=== PATIENT | male | born 1935 | race Caucasian/White ===

== ENCOUNTER 2018-10-26 09:08 | Emergency (ER) | payer OTHER, SELFPAY ==
[2018-10-26 09:22] VITALS: BP 149/67; PULSE 50; RESP 18; TEMP 36.3; O2SAT 100
--- NOTE | 2018-10-26 09:30 | ED.UPPEXIN ---
HPI - Extremity Injury (Upper) General Chief Complaint: Extremity Injury, Upper Stated Complaint: Left thumb/head injury from skiing Time Seen by Provider: 10/26/18 09:12 Source: patient Mode of arrival: ambulatory Limitations: no limitations History of Present Illness HPI narrative: Patient is an 83-year-old left-hand dominant male here for evaluation of a left hand/thumb injury. He states that yesterday he was skiing and [place]. He states that he was hit by another skier and fell forward. Did hurt his hand and did hit his head. He states that his head has already been evaluated he is here today because he has had worsening pain and swelling in his left thumb. Has iced it prior to arrival otherwise no interventions. Related Data Allergies Allergy/AdvReac Type Severity Reaction Status Date / Time No Known Drug Allergies Allergy Verified 10/26/18 09:28 Review of Systems Eyes Denies blurry vision and Denies diplopia Cardiovascular Denies chest pain and Denies dyspnea Respiratory Denies dyspnea Gastrointestinal Gastrointestinal: Denies abdominal pain Musculoskeletal Comments: Left hand/thumb pain Integumentary/Breasts Comments: Bruising around the left thumb Neurologic Comments: No neurologic changes left hand PFSH Surgical History No pertinent past surgical history (Acute) Social History Smoking Status: Never smoker Exam Initial Vital Signs Initial Vital Signs: Vital Signs Temperature 97.4 F L 10/26/18 09:22 Pulse Rate 50 L 10/26/18 09:22 Respiratory Rate 18 10/26/18 09:22 Blood Pressure 149/67 H 10/26/18 09:22 Pulse Oximetry 100 10/26/18 09:22 Const General: cooperative, healthy appearing, comfortable, well developed, well groomed and No acute distress Orientation: alert, awake and oriented x3 HENMT Head: normal to inspection and normocephalic Resp Effort & Inspection: normal respiratory effort Cardio Rate: regular rate Pulses: radial pulses present on the left Skin Other: Bruising circumferentially along the base of the left thumb. Neuro Other: Sensation intact to light touch left upper extremity Extrem Other: Left shoulder left elbow left forearm left wrist unremarkable. Tenderness to palpation along the MCP joint of the left thumb. Psych Appearance: grossly normal and well kempt Course Orders Ordered: ED Orders 10/26/18 09:30 XR hand LT min 3V Stat Vital Signs - 8 hr 10/26/18 09:22 Temperature 97.4 F L Pulse Rate 50 L Respiratory Rate 18 Blood Pressure 149/67 H Pulse Oximetry 100 MDM - Extremity Injury (Upper) Imaging Data Hand x-ray: Radiologist's impression: ROCEDURE: XR HAND LT MIN 3V INDICATIONS: left thumb pain after fall TECHNIQUE: 3 views of the hand(s) acquired. COMPARISON: None. FINDINGS: Bones: No fractures or dislocations. Carpal bones are normally aligned. No suspicious bony lesions. There is severe osteoarthritis at the first carpometacarpal joint, first metacarpophalangeal joint, and multiple interphalangeal joints. Soft tissues: No suspicious soft tissue calcifications. IMPRESSION: 1. No fractures. 2. Severe osteoarthritis. Dictated by: Avel Lopez M.D. on 10/26/2018 at 10:04 Approved by: Avel Lopez M.D. on 10/26/2018 at 10:0 [facility] Narrative Medical decision making narrative: Patient has no tenderness over the snuffbox. X-ray was negative for acute pathology. He does have swelling around the base of the thumb. No other injuries found on exam. A place him in a removable thumb spica splint. We did discuss icing. Informed him that if his symptoms do not improve over the next 7-10 days for worsen that he needs to talk with his primary doctor about a referral to see orthopedics. Patient expressed understanding and agreement with plan. Discharge Plan Departure Patient Disposition: Home Clinical Impression: Left thumb sprain Activity Restrictions/Additional Instructions: The splint that you were given today is removable. You can take it off to shower in to wash your hands. I would also recommend that you take it off to ice your hand several times a day. I would expect some improvement over the next week. If it does not improve please contact your primary doctor to discuss a referral to see orthopedics. You can take Tylenol or ibuprofen for any discomfort.
[2018-10-26 10:30] VITALS: BP 128/77; PULSE 48; RESP 20; O2SAT 94
== END 2018-10-26 10:32 | disposition home or self-care (01) ==
PROVIDERS: Emergency Provider Emergency Medicine; PCP Family Medicine
DX: S63.602A Unspecified sprain of left thumb, initial encounter (principal); V00.328A Other snow-ski accident, initial encounter
CPT/HCPCS: 29260; 73130; 99283

== ENCOUNTER → 2019-02-19 09:54 | Outpatient (CLI) | payer OTHER, SELFPAY ==
--- NOTE | 2019-02-19 10:05 | DI.CT.S_ITS ---
PROCEDURE: CT CHEST WO CON INDICATIONS: Other nonspecific abnormal finding of lung field, diagnostic imaging order form states pulmonary nodules x2 on the right. Comparison study showing this reported pulmonary nodules has not been available for review. TECHNIQUE: Noncontrast 5 mm thick sections acquired from the pulmonary apices to the posterior costophrenic angles. 7 mm thick coronal and sagittal MIP reformats were then acquired. For radiation dose reduction, the following was used: automated exposure control, adjustment of mA and/or kV according to patient size. COMPARISON: None. FINDINGS: Image quality: Excellent. Lungs and pleura: No acute air space opacities. No pleural effusions or pneumothorax. Central and peripheral airways are patent and normal in caliber. Mediastinum: Heart size is normal. No pericardial effusion. No mediastinal adenopathy by size criteria. Thoracic aorta and central pulmonary arteries are normal in size. Esophagus is normal in caliber. No hiatal hernia. Bones and chest wall: No suspicious bony lesions. No vertebral body compression fractures. No axillary or supraclavicular adenopathy by size criteria. Thyroid gland appears normal where well visualized. Abdomen: Visualized upper abdominal solid organs and bowel loops appear normal in the absence of contrast. IMPRESSION: Pulmonary nodules within the lung parenchyma not found. No inflammation is seen. No pleural effusion is identified. Note is made of left upper quadrant surgical clips near the anterior border of the spleen beneath the diaphragm, and several additional surgical clips that suggest prior cholecystectomy. Dictated by: Clyde Montalvo M.D. on 02/19/2019 at 13:33 Approved by: Clyde Montalvo M.D. on 02/19/2019 at 13:36
== END ==
PROVIDERS: PCP Family Medicine; Visit Provider Physician Assistant
DX: R91.8 Other nonspecific abnormal finding of lung field (principal)
CPT/HCPCS: 71250

== ENCOUNTER → 2021-04-24 11:50 | Outpatient (CLI) | payer MEDICARE, OTHER, SELFPAY ==
[2021-04-24 21:15] LABS: COVID19 - ORCAS (NP or Nasal) Negative (Negative)
== END ==
PROVIDERS: PCP Physician Assistant Medical; Visit Provider Family Medicine
DX: Z01.818 Encounter for other preprocedural examination (principal); Z20.822 Contact with and (suspected) exposure to COVID-19
CPT/HCPCS: U0003

== ENCOUNTER 2021-04-25 07:48 | Day surgery (SDC) | payer MEDICARE, OTHER, SELFPAY ==
[2021-04-18 12:42] VITALS: BMI 26.7
[2021-04-25] VITALS (9 sets, daily range): BP systolic 119–134; BP diastolic 64–75; PULSE 53–78; RESP 11–18; TEMP 35.7–36.5; O2SAT 94–98; BMI 26.7
[2021-04-25] MEDS: LACTATED RINGERS 1,000 ML 42 ML IV ×2 (07:58→11:14)
[2021-04-25] MEDS: ACETAMINOPHEN 325 MG TABLET 975 MG PO (07:59)
--- NOTE | 2021-04-25 09:18 | PM.PREOP ---
Pre-operative Note Interval Note History & Physical reviewed/Exam performed by Physician: Yes Changes to H&P: No
[2021-04-25] MEDS: CEFAZOLIN 1 GM VIAL 2 GM IV (09:50)
--- NOTE | 2021-04-25 09:54 | SUR.OPER ---
Supine on padded OR bed, head on pillow, arms secured on padded arm boards at <90 degrees abduction, legs uncrossed, safety belt at thigh, tape over blanket over lower legs.
[2021-04-25] MEDS: BUPIVACAINE 0.25% (PF) VIAL 30 ML INJ (10:01)
--- NOTE | 2021-04-25 11:00 | PM.OP.1 ---
Operative Date/Time/Diagnoses Date of procedure: 04/25/21 Time of procedure: 11:01 Pre-op diagnosis: Reducible left inguinal hernia Post-op diagnosis: same Procedure & Clinicians Procedure: Open left inguinal hernia repair with mesh Same procedure as scheduled: Yes Indications: reducible inguinal hernia Surgeon: Josh Alexandra Anesthesia Type: General Operative Notes Findings: large indirect inguinal hernia Specimen(s): none sent Estimated Blood Loss (mL): 20 Procedure in detail: The patient was placed supine on the table and bilateral lower extremity compression devices were applied. Anesthesia was induced they were intubated with an LMA and received 2g of Ancef. A time-out was performed. They were prepped and draped in sterile fashion. The left external inguinal ring and the anterior superior iliac crest were identified and marked. 1 finger breath above the inguinal ligament the skin was infiltrated with 0.25% bupivacaine. The skin incision was made here and the subcutaneous tissues were divided with electrocautery exposing the external oblique aponeurosis which was then opened along the direction of its fibers. Using blunt dissection the internal oblique aporneurosis was from the external oblique upper leaflet to identify the iliohypogastric nerve. The cord was carefully dissected away from the inguinal canal adjacent to the pubic tubercle. The cord including the vas deferens, testicular bloody supply, ilioguinal and genital nerve were encircled with a [place] drain. No direct floor defect was identified. The cremasteric fibers surrounding the cord were divided using electrocautery adjacent to the internal ring.. The vas deferens and the testicular vessels were preserved and protected. There was a small indirect hernia on the anterior medial aspect of the cord which was skeletonized away from the vas deferens and testicular blood supply. There was a large indirect hernia which was skeletonized back to the internal ring and reduced spontaneously into the abdomen. A plug of mesh was placed into the internal ring and secured with Vicryl. I selected a 7x 15 cm lightweight Pro Loop hernia mesh. The inferior medial aspect of the mesh was anchored to insertion of the rectus muscle to the pubic tubercle such that there was approximately 2 cm of tubercle overlap with Ethibond and then was run continuously along the inferior edge of the mesh to the shelving edge of the inguinal ligament. Interrupted 3 0 Vicryl suture was used to anchor the superior aspect of the mesh to the conjoined tendon in several places. The tails were then reapproximated loosely around the spermatic cord. The tails of the mesh were then tucked under the external oblique aponeurosis. The repair was checked for hemostasis. The wound was irrigated with sterile saline. The external oblique aponeurosis was reapproximated in a running fashion using 3 0 Vicryl. The subcutaneous tissues were reapproximated with 3 0 Vicryl skin closed with 4 0 Monocryl followed by the application of Dermabond. At the end of the operation I ensured that both testicles were within the scrotum. The sponge instrument count at the end operation was correct. The patient emerged from anesthesia was extubated and transferred to the postoperative care unit in stable condition. A total of 30 ml of of 0.25% bupivicaine was used to infiltrate the skin. Complications: none Post-operative Condition: stable Disposition: same day surgery
[2021-04-25] MEDS: KETOROLAC 30 MG/ML VIAL 15 MG IV (11:06)
--- NOTE | 2021-04-25 11:49 | SUR.PHASEI ---
prescription for Tramadol given to . Notified of status and that patient would need to void prior to discharge. Urinal at bedside.
--- NOTE | 2021-04-25 12:14 | SUR.PHASEII ---
Pt to phase II in stretcher. Report at bedside from Joan JOSHI. Pt denies pain, steri-strips clean, dry and intact. Juice and water given. Abdomen soft. Call light in reach, bed low in locked position. Plan: void prior to discharge.
== END 2021-04-25 13:40 | disposition home or self-care (01) ==
PROVIDERS: PCP Physician Assistant Medical; Referring Provider Surgery; Visit Provider Surgery
PROC: (CPT 49505; principal; 2021-04-25 09:00)
DX: K40.90 Unilateral inguinal hernia, without obstruction or gangrene, not specified as recurrent (principal); K21.9 Gastro-esophageal reflux disease without esophagitis; G47.33 Obstructive sleep apnea (adult) (pediatric)
CPT/HCPCS: 49505; 82962; C1781; J0690; J1100; J1885; J2250; J2405; J2704; J3010

== ENCOUNTER → 2022-01-04 09:12 | Outpatient (CLI) | payer MEDICARE, OTHER, SELFPAY ==
[2022-01-04 19:59] LABS: COVID19 - ORCAS (NP or Nasal) Negative (Negative)
== END ==
PROVIDERS: PCP Family Medicine; Referring Provider Family Medicine; Visit Provider Family Medicine
DX: Z20.822 Contact with and (suspected) exposure to COVID-19 (principal)
CPT/HCPCS: C9803; U0003

== ENCOUNTER 2022-03-22 19:04 | Emergency (ER) | payer MEDICARE, OTHER, SELFPAY ==
[2022-03-22] VITALS (13 sets, daily range): BP systolic 106–150; BP diastolic 58–67; PULSE 64–79; RESP 15–21; TEMP 36.4; O2SAT 91–96; BMI 28.1
--- NOTE | 2022-03-22 19:37 | DI.RAD.S_ITS ---
PROCEDURE: XR CHEST 1V INDICATIONS: soa TECHNIQUE: One view of the chest was acquired. COMPARISON: [facility] ([place]), CR, XR CHEST 2V, 03/21/2022, 14:45. FINDINGS: Surgical changes and devices: Postsurgical changes redemonstrated in the left upper quadrant of the abdomen. Lungs and pleura: Lungs are clear. No pleural effusions or pneumothorax. Mediastinum: Mediastinal contours appear normal. Heart size is normal. Bones and chest wall: No suspicious bony lesions. Overlying soft tissues appear unremarkable. IMPRESSION: 1. No acute cardiopulmonary disease. Dictated by: Maurisio Payton M.D. on 03/22/2022 at 20:41 Approved by: Maurisio Pyaton M.D. on 03/22/2022 at 20:44
--- NOTE | 2022-03-22 19:38 | ED.EXTPRO ---
HPI - Extremity Problem General Chief complaint: Extremity Problem,Nontraumatic Stated complaint: Possible Heart Attack Time Seen by Provider: 03/22/22 19:22 Source: patient Mode of arrival: Ambulatory History of Present Illness HPI Narrative: Patient here with . From work this time. Sent from primary care. Complaints 3 weeks of dyspnea and bilateral leg swelling as well as upper extremity swelling. Denies any chest pain. Has had exertional dyspnea that occurs on his usual walks with a slight incline that he never had problems before. Please see notes below from primary care office visit yesterday in the office as well as today. Patient went to [facility] in [place] last night and had blood work as well as ultrasound of the legs. Negative for DVT. EKG was done in the office today and was instructed to come here for evaluation for abnormal EKG. I have reviewed the EKG and no acute injury seen on the EKG. Also on our EKG. Denies any past heart attack or coronary disease or CHF. No history of blood clots in legs or lungs. [facility] ,[facility] Practice Office Visit Signed Patient: Chris Herman MR#: [id number] : 1935 Acct:[id number] Age/Sex: 86 / M Date of Service:?03/21/22 Loc: [facility] [place]? Attending Dr: Jerrica Banda P.A-C Intake Intake Intake- Clincial Staff Intake performed by: Christine Price Reason For Visit Visit Reasons:?concerns about retaining water Intake Note: [facility] to discuss mainly about his swelling feet that he has noticed over the past 3 weeks. He is also concerned he might have long covid, patient had covid positive test back in 2021, and has not regained taste, or smell since then. Tobacco Status Smoking Status: Never smoker Allergies No Known Drug Allergies Allergy (Verified 04/25/21 07:24) Vitals ? 03/21/2214:34 Height 5 ft 8 in Weight 186 lb BMI 28.3 BP 108/62 Blood Pressure Location Lt brachial Position Sitting Pulse 79 Pulse Source Monitor Temp 97.3 F L Temp Source Temporal Artery Scan Pulse Oximetry (%) 93 Oxygen Delivery Method room air Notes Chief Complaint: multiple concerns. Note Note: Chris brings in with him a? typed list of 19 concerns, which he thinks may be related to having had COVID possibly in October of 2021, but never tested positive for COVID. He lost his sense of taste during that time and reports seeing ENT who reportedly said no big deal. Chris states he started having swollen arms, legs and feet 3 weeks ago that makes his knees feel thick when he bends them. Chris states he has gained weight from 177 to 185.8 pound and is not eating much. He states he cut white flour, alcohol, ice cream and most meat out of his diet. He denies any trauma or travel. He feels short of breath walking up a small incline and has had normal BP. He states he gets very tired in the afternoon. He did get evaluated by EMS and was told that he might have long Covid. He has several skin spots that he would like treated with liquid nitrogen [facility] ,? [facility] Practice Office Visit Signed Patient: Chris Herman MR#: [id number] : 1935 Acct:[id number] Age/Sex: 86 / M Date of Service:?03/22/22 Loc: [place]? Attending Dr: Bibiana Daniel P.A-C Intake Intake Reason For Visit Visit Reasons:?ED follow up for BL leg edema Tobacco Status Smoking Status: Never smoker Allergies No Known Drug Allergies Allergy (Verified 04/25/21 07:24) Vitals ? 03/22/2213:58 Height 5 ft 8 in Weight 191 lb BMI 29.0 BP 100/58 L Blood Pressure Location Rt brachial Position Sitting Respiration 14 Pulse 80 Pulse Source Monitor Temp 97.8 F Temp Source Temporal Artery Scan Pulse Oximetry (%) 95 Oxygen Delivery Method room air Notes Chief Complaint: B leg edema Note Note: Was seen for B leg edema yesterday at in the ER and was sent home with copy of normal doppler study of both legs and mildly elevated d-dimer...? Presents here 24 hours later because the edema is not any better. SOB in last 3-4 days associated...not any worse than it was yesterday with? Leg swelling also about the same as it was yesterday. ? has tried compression socks which did help some but only from knees down.? Saw RASHMI Banda earlier this week and still thinks he may have PE and? is worried....mentions that blood pressure has been lower lately also and wants to know what's going on.? Has follow up with RASHMI Banda next saturday. ? Currently? denies CP, nausea, syncope, weakness Related Data Home Medications Medication Instructions Recorded Confirmed aspirin 81 mg tablet,delayed 81 mg PO DAILY 04/06/21 03/26/22 release (Adult Low Dose Aspirin) omeprazole 40 mg capsule,delayed 40 mg PO DAILY 04/06/21 03/26/22 release fluorouracil 5 % topical cream 1 applic topical ONCE 04/11/21 03/26/22 (Efudex) pantoprazole 40 mg tablet,delayed 40 mg PO DAILY 07/28/21 03/26/22 release Previous Rx's Medication Instructions Recorded acetaminophen 325 mg capsule 650 mg PO QID PRN pain #60 caps 04/25/21 (Tylenol) docusate sodium 100 mg capsule 100 mg PO BID #30 caps 04/25/21 (Colace) ibuprofen 200 mg tablet 400 mg PO Q6H #60 tabs 04/25/21 ergocalciferol (vitamin D2) 1,250 1,250 mcg PO QWEEK #30 caps 09/18/21 mcg (50,000 unit) capsule Allergies Allergy/AdvReac Type Severity Reaction Status Date / Time No Known Drug Allergies Allergy Verified 03/22/22 19:21 Review of Systems Review of Systems Narrative: GENERAL: Denies chills, fatigue, malaise, fever, sweats. HEENT: Denies sinus pain, ear pain, sore throat RESPIRATORY: Positive for dyspnea, negative for cough CARDIOVASCULAR: Denies chest pain, palpitations positive for peripheral edema GASTROINTESTINAL: Denies nausea, vomiting, abdominal pain : Denies dysuria, frequency, hematuria MUSCULOSKELETAL: denies muscle or bony pain SKIN: Denies rash, skin lesions NEUROLOGIC: Denies weakness, numbness ROS Unobtainable: All systems reviewed & are unremarkable except as noted in HPI and below Patient History Medical History Anesthesia GERD (gastroesophageal reflux disease) Hearing impaired MAR (obstructive sleep apnea) 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 EYES: Pupils equal round No scleral icterus. ENT: Mucous membranes moist. NECK: Trachea midline. CARDIOVASCULAR: Regular rate and rhythm without murmurs RESPIRATORY: Clear to auscultation. Breath sounds equal bilaterally. No wheezes, rales, or rhonchi. Clear and equal lung sounds speaking full sentences. GASTROINTESTINAL: Abdomen soft, non-tender EXTREMITIES: No gross deformities. 2+ bilateral ankle edema. BACK: No flank tenderness. NEURO: AOx4. SKIN: Warm and dry PSYCH: Not anxious, is cooperative Initial Vital Signs Initial Vital Signs: Vital Signs Pulse Rate 79 03/22/22 19:11 Blood Pressure 150/67 H 03/22/22 19:11 Pulse Oximetry 96 03/22/22 19:11 Course Course Course Narrative: No new issues during course of stay Orders Ordered: ED Orders 03/22/22 19:37 XR chest 1V Stat EKG-12 Lead Stat 03/22/22 19:43 Complete Blood Count AUTO DIFF Stat Comprehensive Metabolic Panel Stat D Dimer Stat NT-proBNP (BNP-Adult 18+) Stat Partial Thromboplastin Time Stat Prothrombin Time INR Stat Troponin & CK Cardiac Panel Stat 03/22/22 20:54 CT angio chest PE protocol Stat Reevaluation(s) Reevaluation #1: Reviewed results with patient they do agree for CT scan to rule PE. Time: 20:55 Reevaluation #2: Spoke with patient IV contrast allergies. He has never had hives or trouble breathing or throat tightening or rash. Only flushed feeling and warmth with past IV contrast. He does agree for PE protocol. At this time I informed him though symptoms are side effects of IV contrast. Likely not a allergic response Reevaluation #3: Reviewed with patient and results. At this time laboratory studies are reassuring. No pulmonary embolism or DVT. Possible venous insufficiency causing peripheral edema. CT and blood work are reassuring. Return precautions reviewed with them. They have had discussion with primary care regarding diuretics Vital Signs Vital signs: Vital Signs - 8 hr 03/22/22 19:15 03/22/22 19:11 03/22/22 19:11 Temperature 97.6 F Pulse Rate 76 79 Respiratory Rate 15 Blood Pressure 150/67 H 150/67 H Pulse Oximetry 96 96 Oxygen Delivery Method Room Air 03/22/22 19:30 03/22/22 19:31 03/22/22 19:31 Temperature Pulse Rate 79 77 Respiratory Rate 20 19 Blood Pressure 112/66 Pulse Oximetry 93 94 Oxygen Delivery Method 03/22/22 20:00 03/22/22 20:00 03/22/22 20:30 Temperature Pulse Rate 72 Respiratory Rate 17 Blood Pressure 111/61 121/58 L Pulse Oximetry 93 Oxygen Delivery Method 03/22/22 20:30 03/22/22 21:00 03/22/22 21:00 Temperature Pulse Rate 74 65 Respiratory Rate 21 15 Blood Pressure 108/59 L Pulse Oximetry 94 93 Oxygen Delivery Method 03/22/22 21:44 03/22/22 21:45 03/22/22 21:45 Temperature Pulse Rate 66 65 Respiratory Rate 16 Blood Pressure 118/66 Pulse Oximetry 91 94 Oxygen Delivery Method MDM - Extremity (Nontraumatic) Differential Diagnosis Differential diagnosis: Likely deep vein thrombosis of lower extremity and other (PE/congestive heart failure/IA) Lab Data Result diagrams: 03/22/22 19:43 03/22/22 19:43 Labs: Lab Results 03/22/22 03/22/22 03/22/22 Range/Units 19:43 19:43 19:43 WBC 5.8 (4.5-11.0) X10^3/uL RBC 4.24 L (4.5-5.9) X10^6/uL Hgb 13.8 (13.5-17.5) g/dL Hct 40.1 L (41-53) % MCV 94.5 (80-100) fL MCH 32.5 (26-34) PG MCHC 34.4 (30-36) % RDW 14.7 (11.6-14.8) % Plt Count 71 L (150-400) X10^3/uL Neut % (Auto) 63.9 (50-75) % Lymph % (Auto) 18.5 L (25-40) % Todd % (Auto) 13.9 (3-14) % Eos % (Auto) 3.1 (2-4) % Baso % (Auto) 0.6 (0-2) % Neut # (Auto) 3700 (0670-5157) /uL Lymph # (Auto) 1100 (1388-2839) /uL Todd # (Auto) 800 (0-900) /uL Eos # (Auto) 200 (0-450) /uL Baso # (Auto) 0 (0-100) /uL PT 12.8 H (10.1-12.7) SECONDS INR 1.2 (0.9-1.3) APTT 32 (26.4-36.2) SECONDS D-Dimer 375 H (<230) ng/mL Sodium 135 L (137-145) mmol/L Potassium 3.7 (3.4-5.1) mmol/L Chloride 107 (98-107) mmol/L Carbon Dioxide 22 (22-32) mmol/L BUN 20 (9-20) mg/dL Creatinine 0.94 (0.66-1.25) mg/dL Estimated GFR > 60 (>60) mL/min BUN/Creatinine Ratio 21.3 (6-22) Glucose 108 (80-110) mg/dL Calcium 7.7 L (8.4-10.2) mg/dL Total Bilirubin 1.2 (0.2-1.3) mg/dL AST 18 (17-59) IU/L ALT 16 (<50) IU/L Alkaline Phosphatase 73 (38-126) U/L Total Creatine Kinase 42 L (55-170) U/L CK-MB (CK-2) TNP CK-MB (CK-2) Rel Index TNP Troponin I < 0.012 (0.01-0.034) ng/mL NT-Pro-B Natriuret Pep 54 (<450) pg/mL Total Protein 5.8 L (6.3-8.2) g/dL Albumin 3.1 L (3.5-5.0) g/dL Globulin 2.7 (1.7-4.1) g/dL Albumin/Globulin Ratio 1.1 (1.0-2.8) Imaging Data Chest x-ray: Radiologist's Impression: [address] [address] XRay Report Signed Patient: Chris Herman MR#: [id number] : 1935 Acct:[id number] Age/Sex: 86 / M Date of Service: 03/22/22 Loc: ED Accession Number: [id number] ?? Procedure: XR chest 1V Ordering Provider: Florentino Garsia MD PROCEDURE:? XR CHEST 1V ? INDICATIONS:? soa ? TECHNIQUE:? One view of the chest was acquired.? ? [place] [facility] [place], [place], 14:45. ? FINDINGS:? ? Surgical changes and devices:? Postsurgical changes redemonstrated in the left upper quadrant of the abdomen.? ? Lungs and pleura:? Lungs are clear.? No pleural effusions or pneumothorax.? ? Mediastinum:? Mediastinal contours appear normal.? Heart size is normal.? ? Bones and chest wall:? No suspicious bony lesions.? Overlying soft tissues appear unremarkable.? ? IMPRESSION:? ? 1.? No acute cardiopulmonary disease. ? ? ? Dictated by: Maurisio Payton M.D. on 03/22/2022 at 20:41 ? ? Approved by: Maurisio Payton M.D. on 03/22/2022 at 20:44 ? CT scan - chest: Radiologist's Impression: [address] [address] [address] Scan Report Signed Patient: Chris Herman MR#: [id number] : 1935 Acct:[id number] Age/Sex: 86 / M Date of Service: 03/22/22 Loc: ED Accession Number: [id number] ?? Procedure: CT angio chest PE protocol Ordering Provider: Florentino Garsia MD PROCEDURE:? CT ANGIO CHEST PE PROTOCOL ? INDICATIONS:? Dyspnea ? TECHNIQUE:? After the administration of intravenous contrast, 2 mm thick sections acquired from the pulmonary apices to the posterior costophrenic angles.? 3-dimensional maximum intensity projection (MIP) coronal and sagittal reformats were then acquired through the thorax.? For radiation dose reduction, the following was used:? automated exposure control, adjustment of mA and/or kV according to patient size.? ? COMPARISON:? [facility], CT, CT CHEST WO CON, 02/19/2019, 10:03. ? FINDINGS:? Image quality:? Excellent.? ? Pulmonary arteries:? Pulmonary arteries demonstrate no intraluminal filling defects to suggest central pulmonary embolism.? There is enlargement of the pulmonary arteries, with the main pulmonary artery measuring up to 3.2 cm suggestive of pulmonary arterial hypertension.? ? Lungs and pleura:? There is dependent atelectasis and scarring bilaterally.? No pleural effusions or pneumothorax.? Central and peripheral airways are patent.? ? Mediastinum:? Heart size is normal, without pericardial effusion.? No mediastinal or hilar adenopathy.? Thoracic aorta is normal in caliber and enhancement.? Esophagus is normal in caliber, with a small hiatal hernia.? ? Bones and chest wall:? No suspicious bony lesions.? Ribs and thoracic spine appear intact throughout.? Thyroid gland demonstrates no discrete nodules.? No axillary or supraclavicular adenopathy.? ? Abdomen:? Visualized upper abdomen demonstrates multiple surgical clips in the left upper quadrant.? Gallbladder is surgically absent. ? IMPRESSION:? ? 1. No evidence of pulmonary embolism. ? 2. Enlargement of the pulmonary arteries suggestive of pulmonary arterial hypertension. ? 3. No acute airspace consolidation.? ? ? Dictated by: Maurisio Payton M.D. on 03/22/2022 at 22:34 ? ? Approved by: Maurisio Payton M.D. on 03/22/2022 at 22:38 ? MDM Narrative Medical decision making narrative: Appropriate for discharge home. Laboratory studies and imaging are reassuring. Patient did have ultrasound of the legs yesterday a [facility] and negative for DVT. No indication for repeat imaging of the legs. Return precautions reviewed with patient. Possible venous insufficiency causing patient leg edema. He does have family doctor to follow up with tomorrow regarding possible diuretics to help reduce edema or may need to use pressure stockings. He is elevating feet when at rest. Discharge Plan Departure Patient Disposition: Home Clinical Impression: Lower extremity edema, Left inguinal hernia Instructions: DI for Edema Due to Venous Stasis Activity Restrictions/Additional Instructions: See family doctor this week for re-evaluation and may need the medication for diuretics or use compression stockings of the give the legs to help return of fluid away from the feet and legs. Patient to elevate the feet and legs when at rest. This will help reduce swelling. Tonight exam and laboratory studies and imaging reassuring. No signs of blood clot in the lungs. No congestive heart failure. The veins in the legs sometimes become weakened and unable to return fluid away from the legs and feet. Return if worsening questions or concerns. Prescriptions: No Action ergocalciferol (vitamin D2) 1,250 mcg (50,000 unit) capsule 1,250 mcg PO QWEEK Qty: 30 0RF omeprazole 40 mg capsule,delayed release(DR/EC) 40 mg PO DAILY aspirin [Adult Low Dose Aspirin] 81 mg tablet,delayed release (DR/EC) 81 mg PO DAILY ibuprofen 200 mg tablet 400 mg PO Q6H Qty: 60 0RF docusate sodium [Colace] 100 mg capsule 100 mg PO BID Qty: 30 0RF acetaminophen [Tylenol] 325 mg capsule 650 mg PO QID PRN (Reason: pain) Qty: 60 0RF fluorouracil [Efudex] 5 % cream 1 applic topical ONCE pantoprazole 40 mg tablet,delayed release (DR/EC) 40 mg PO DAILY Referrals: Real Alonzo DO [Primary Care Provider] - Visit Report Forms: Patient Portal/API
[2022-03-22 19:53] LABS: Add Manual Diff / Slide Review NO; Basophils Absolute Auto 0 /uL (0-100); Basophils Percent Auto 0.6 % (0-2); Eosinophils Absolute Auto 200 /uL (0-450); Eosinophils Percent Auto 3.1 % (2-4); Hematocrit 40.1 % (41-53); Hemoglobin 13.8 g/dL (13.5-17.5); Lymphocytes Absolute Auto 1100 /uL (1100-4500); Lymphocytes Percent Auto 18.5 % (25-40); Mean Corpuscular HGB Conc 34.4 % (30-36); Mean Corpuscular Hemoglobin 32.5 PG (26-34); Mean Corpuscular Volume 94.5 fL (80-100); Monocytes Absolute Auto 800 /uL (0-900); Monocytes Percent Auto 13.9 % (3-14); Neutrophils Absolute Auto 3700 /uL (1500-7000); Neutrophils Percent Auto 63.9 % (50-75); Platelet Count 71 X10^3/uL (150-400); Red Blood Cell Count 4.24 X10^6/uL (4.5-5.9); Red Cell Distribution Width 14.7 % (11.6-14.8); White Blood Cell Count 5.8 X10^3/uL (4.5-11.0)
[2022-03-22 20:01] LABS: INR 1.2 (0.9-1.3); Prothrombin Time 12.8 SECONDS (10.1-12.7)
[2022-03-22 20:04] LABS: D Dimer 375 ng/mL (<230); PTT Partial Thromboplastin Tim 32 SECONDS (26.4-36.2)
[2022-03-22 20:05] LABS: Alanine Aminotransferase 16 IU/L (<50); Albumin 3.1 g/dL (3.5-5.0); Albumin Globulin Ratio 1.1 (1.0-2.8); Alkaline Phosphatase 73 U/L (38-126); Aspartate Aminotransferase 18 IU/L (17-59); BUN Creatinine Ratio 21.3 (6-22); Bilirubin Total 1.2 mg/dL (0.2-1.3); Blood Urea Nitrogen 20 mg/dL (9-20); Calcium 7.7 mg/dL (8.4-10.2); Carbon Dioxide 22 mmol/L (22-32); Chloride 107 mmol/L (98-107); Creatine Kinase 42 U/L (55-170); Estimated Glomerular Filt Rate > 60 mL/min (>60); Globulin 2.7 g/dL (1.7-4.1); Glucose 108 mg/dL (80-110); HEMOLYSIS < 15 (0-50); Potassium 3.7 mmol/L (3.4-5.1); Sodium 135 mmol/L (137-145); Total Protein 5.8 g/dL (6.3-8.2)
[2022-03-22 20:17] LABS: NT-proBNP (BNP-Adult 18+) 54 pg/mL (<450); Troponin I < 0.012 ng/mL (0.01-0.034)
--- NOTE | 2022-03-22 20:24 | PC.NURSE ---
pt was sent by pcp at [place]. EKG in office showed possible old DE. Pt and report that they were at [facility] last night for a DVT workup of his legs. He was c/o swelling in the lower extremities and exertional SOB. Pt had elevated D-Dimer and was worked up for DVT. Pt discharged and told to follow up at his PCP. Seen today by PCP and told to return to hospital due to EKG which showed possible heart attack. Pt still has bilateral lower extremity edema and exertional SOB. no new symptoms.
--- NOTE | 2022-03-22 20:54 | DI.CT.S_ITS ---
PROCEDURE: CT ANGIO CHEST PE PROTOCOL INDICATIONS: Dyspnea TECHNIQUE: After the administration of intravenous contrast, 2 mm thick sections acquired from the pulmonary apices to the posterior costophrenic angles. 3-dimensional maximum intensity projection (MIP) coronal and sagittal reformats were then acquired through the thorax. For radiation dose reduction, the following was used: automated exposure control, adjustment of mA and/or kV according to patient size. COMPARISON: [facility], CT, CT CHEST WO CON, 02/19/2019, 10:03. FINDINGS: Image quality: Excellent. Pulmonary arteries: Pulmonary arteries demonstrate no intraluminal filling defects to suggest central pulmonary embolism. There is enlargement of the pulmonary arteries, with the main pulmonary artery measuring up to 3.2 cm suggestive of pulmonary arterial hypertension. Lungs and pleura: There is dependent atelectasis and scarring bilaterally. No pleural effusions or pneumothorax. Central and peripheral airways are patent. Mediastinum: Heart size is normal, without pericardial effusion. No mediastinal or hilar adenopathy. Thoracic aorta is normal in caliber and enhancement. Esophagus is normal in caliber, with a small hiatal hernia. Bones and chest wall: No suspicious bony lesions. Ribs and thoracic spine appear intact throughout. Thyroid gland demonstrates no discrete nodules. No axillary or supraclavicular adenopathy. Abdomen: Visualized upper abdomen demonstrates multiple surgical clips in the left upper quadrant. Gallbladder is surgically absent. IMPRESSION: 1. No evidence of pulmonary embolism. 2. Enlargement of the pulmonary arteries suggestive of pulmonary arterial hypertension. 3. No acute airspace consolidation. Dictated by: Maurisio Payton M.D. on 03/22/2022 at 22:34 Approved by: Maurisio Payton M.D. on 03/22/2022 at 22:38
== END 2022-03-22 23:23 | disposition home or self-care (01) ==
PROVIDERS: Emergency Provider Emergency Medicine; PCP Family Medicine
DX: R60.0 Localized edema (principal); R06.00 Dyspnea, unspecified
CPT/HCPCS: 36415; 71045; 71275; 80053; 82550; 83880; 84484; 85025; 85379; 85610; 85730; 93005; 99284; Q9967

== ENCOUNTER → 2022-03-26 08:44 | Outpatient (CLI) | payer MEDICARE, OTHER, SELFPAY ==
[2022-03-26 19:36] LABS: NT-proBNP (BNP-Adult 18+) 84 pg/mL (<450)
[2022-03-26 20:00] LABS: TSH w/ Reflex to FT4 4.66 uIU/mL (0.47-4.68)
[2022-03-26 20:01] LABS: D Dimer 725 ng/mL (<230)
[2022-03-26 20:08] LABS: Prostate Specific Antigen Scrn < 0.064 ng/mL (0.1-4.0)
== END ==
PROVIDERS: PCP Family Medicine; Visit Provider Physician Assistant
DX: M62.50 Muscle wasting and atrophy, not elsewhere classified, unspecified site (principal); R06.02 Shortness of breath; Z12.5 Encounter for screening for malignant neoplasm of prostate; R43.8 Other disturbances of smell and taste; R60.9 Edema, unspecified; U09.9 Post COVID-19 condition, unspecified; R22.43 Localized swelling, mass and lump, lower limb, bilateral; R60.0 Localized edema
CPT/HCPCS: 83880; 84443; 85379; 86769; G0103

== ENCOUNTER → 2022-04-23 10:25 | Outpatient (CLI) | payer MEDICARE, OTHER, SELFPAY ==
[2022-04-23 19:58] LABS: Add Manual Diff / Slide Review NO; Basophils Absolute Auto 0 /uL (0-100); Basophils Percent Auto 0.1 % (0-2); Cholesterol 115 mg/dL (140-199); Eosinophils Absolute Auto 0 /uL (0-450); Eosinophils Percent Auto 0.2 % (2-4); HDL Cholesterol 62 mg/dL (40-60); Hemoglobin 13.1 g/dL (13.5-17.5); LDL Cholesterol Calculated 44 mg/dL (<100); Lymphocytes Absolute Auto 700 /uL (1100-4500); Lymphocytes Percent Auto 7.7 % (25-40); Mean Corpuscular HGB Conc 34.6 % (30-36); Mean Corpuscular Hemoglobin 33.1 PG (26-34); Mean Corpuscular Volume 95.7 fL (80-100); Monocytes Absolute Auto 400 /uL (0-900); Monocytes Percent Auto 4.4 % (3-14); Neutrophils Absolute Auto 8200 /uL (1500-7000); Neutrophils Percent Auto 87.6 % (50-75); Platelet Count 91 X10^3/uL (150-400); Red Blood Cell Count 3.97 X10^6/uL (4.5-5.9); Red Cell Distribution Width 14.9 % (11.6-14.8); Triglycerides 47 mg/dL (35-150); White Blood Cell Count 9.4 X10^3/uL (4.5-11.0)
[2022-04-23 19:59] LABS: Alanine Aminotransferase 27 IU/L (<50); Albumin 3.9 g/dL (3.5-5.0); Albumin Globulin Ratio 1.4 (1.0-2.8); Alkaline Phosphatase 64 U/L (38-126); Aspartate Aminotransferase 24 IU/L (17-59); BUN Creatinine Ratio 24.4 (6-22); Bilirubin Total 2.9 mg/dL (0.2-1.3); Blood Urea Nitrogen 20 mg/dL (9-20); Calcium 8.4 mg/dL (8.4-10.2); Carbon Dioxide 21 mmol/L (22-32); Chloride 105 mmol/L (98-107); Estimated Glomerular Filt Rate > 60 mL/min (>60); Globulin 2.8 g/dL (1.7-4.1); Glucose 108 mg/dL (80-110); HEMOLYSIS < 15 (0-50); Potassium 4.3 mmol/L (3.4-5.1); Sodium 135 mmol/L (137-145); Total Protein 6.7 g/dL (6.3-8.2)
[2022-04-23 20:01] LABS: Amylase 75 U/L (30-110)
[2022-04-23 20:15] LABS: Vitamin D 25 Hydroxy (D3) 44.6 ng/mL (30.0-100.0)
[2022-04-23 20:38] LABS: Hepatitis B Surface Antigen NEGATIVE s/c (NEGATIVE)
[2022-04-23 20:54] LABS: Vitamin B12 366 pg/mL (239-931)
[2022-04-23 21:09] LABS: Hep C Virus Ab w/Reflex Quant NEGATIVE s/c (NEGATIVE)
[2022-04-23 23:31] LABS: Prostate Specific Antigen < 0.064 ng/mL (0.10-4.00)
== END ==
PROVIDERS: PCP Family Medicine; Visit Provider Family Medicine
DX: Z87.19 Personal history of other diseases of the digestive system (principal); E55.9 Vitamin D deficiency, unspecified; E78.5 Hyperlipidemia, unspecified; D69.6 Thrombocytopenia, unspecified; Z85.46 Personal history of malignant neoplasm of prostate; C94.6 Myelodysplastic disease, not elsewhere classified; D64.9 Anemia, unspecified; E78.6 Lipoprotein deficiency; G47.33 Obstructive sleep apnea (adult) (pediatric); K21.9 Gastro-esophageal reflux disease without esophagitis; M62.50 Muscle wasting and atrophy, not elsewhere classified, unspecified site; R06.02 Shortness of breath; R22.43 Localized swelling, mass and lump, lower limb, bilateral; R43.8 Other disturbances of smell and taste; U09.9 Post COVID-19 condition, unspecified; Z86.73 Personal history of transient ischemic attack (TIA), and cerebral infarction without residual deficits
CPT/HCPCS: 80053; 80061; 82150; 82306; 82607; 84153; 85025; 86803; 87340

== ENCOUNTER → 2022-05-14 13:31 | Outpatient (CLI) | payer MEDICARE, OTHER, SELFPAY ==
[2022-05-14 21:00] LABS: Add Manual Diff / Slide Review NO; Basophils Absolute Auto 0 /uL (0-100); Basophils Percent Auto 0.2 % (0-2); Eosinophils Absolute Auto 0 /uL (0-450); Eosinophils Percent Auto 0.1 % (2-4); Hematocrit 40.7 % (41-53); Hemoglobin 13.9 g/dL (13.5-17.5); Lymphocytes Absolute Auto 600 /uL (1100-4500); Lymphocytes Percent Auto 5.5 % (25-40); Mean Corpuscular HGB Conc 34.1 % (30-36); Mean Corpuscular Hemoglobin 32.6 PG (26-34); Mean Corpuscular Volume 95.6 fL (80-100); Monocytes Absolute Auto 200 /uL (0-900); Monocytes Percent Auto 1.5 % (3-14); Neutrophils Absolute Auto 9600 /uL (1500-7000); Neutrophils Percent Auto 92.7 % (50-75); Platelet Count 137 X10^3/uL (150-400); Red Blood Cell Count 4.26 X10^6/uL (4.5-5.9); Red Cell Distribution Width 14.1 % (11.6-14.8); White Blood Cell Count 10.3 X10^3/uL (4.5-11.0)
[2022-05-14 21:14] LABS: BUN Creatinine Ratio 34.1 (6-22); Blood Urea Nitrogen 31 mg/dL (9-20); Calcium 8.4 mg/dL (8.4-10.2); Carbon Dioxide 23 mmol/L (22-32); Chloride 101 mmol/L (98-107); Estimated Glomerular Filt Rate > 60 mL/min (>60); Glucose 166 mg/dL (80-110); HEMOLYSIS < 15 (0-50); Potassium 4.5 mmol/L (3.4-5.1); Sodium 135 mmol/L (137-145)
== END ==
PROVIDERS: PCP Family Medicine; Visit Provider Family Medicine
DX: K21.9 Gastro-esophageal reflux disease without esophagitis (principal); D69.6 Thrombocytopenia, unspecified; E87.1 Hypo-osmolality and hyponatremia
CPT/HCPCS: 80048; 85025

== ENCOUNTER → 2022-05-15 13:53 | Outpatient (CLI) | payer MEDICARE, OTHER, SELFPAY ==
[2022-05-15 20:17] LABS: Hemoglobin A1C% w Est Avg Glu 6.1 % (4.0-6.0)
== END ==
PROVIDERS: PCP Family Medicine; Visit Provider Family Medicine
DX: R73.9 Hyperglycemia, unspecified (principal)
CPT/HCPCS: 83036

== ENCOUNTER → 2022-05-30 09:30 | Outpatient (CLI) | payer MEDICARE, OTHER, SELFPAY ==
[2022-05-30 19:38] LABS: Add Manual Diff / Slide Review NO; Basophils Absolute Auto 0 /uL (0-100); Basophils Percent Auto 0.4 % (0-2); Eosinophils Absolute Auto 0 /uL (0-450); Eosinophils Percent Auto 0.4 % (2-4); Hematocrit 38.9 % (41-53); Hemoglobin 13.8 g/dL (13.5-17.5); Lymphocytes Absolute Auto 1400 /uL (1100-4500); Lymphocytes Percent Auto 14.6 % (25-40); Mean Corpuscular HGB Conc 35.4 % (30-36); Mean Corpuscular Hemoglobin 33.1 PG (26-34); Mean Corpuscular Volume 93.5 fL (80-100); Monocytes Absolute Auto 800 /uL (0-900); Monocytes Percent Auto 8.3 % (3-14); Neutrophils Absolute Auto 7200 /uL (1500-7000); Neutrophils Percent Auto 76.3 % (50-75); Platelet Count 173 X10^3/uL (150-400); Red Blood Cell Count 4.16 X10^6/uL (4.5-5.9); Red Cell Distribution Width 13.4 % (11.6-14.8); White Blood Cell Count 9.5 X10^3/uL (4.5-11.0)
[2022-05-30 20:07] LABS: BUN Creatinine Ratio 22.1 (6-22); Blood Urea Nitrogen 21 mg/dL (9-20); Calcium 8.9 mg/dL (8.4-10.2); Carbon Dioxide 28 mmol/L (22-32); Chloride 103 mmol/L (98-107); Estimated Glomerular Filt Rate > 60 mL/min (>60); Glucose 84 mg/dL (80-110); HEMOLYSIS < 15 (0-50); Potassium 4.4 mmol/L (3.4-5.1); Sodium 136 mmol/L (137-145)
[2022-06-02 13:36] LABS: ANA Screen, IFA Negative (.)
== END ==
PROVIDERS: PCP Family Medicine; Visit Provider Family Medicine
DX: D64.9 Anemia, unspecified (principal); C94.6 Myelodysplastic disease, not elsewhere classified; D69.6 Thrombocytopenia, unspecified; E74.39 Other disorders of intestinal carbohydrate absorption; E87.1 Hypo-osmolality and hyponatremia
CPT/HCPCS: 80048; 85025; 86038; 86880

== ENCOUNTER → 2022-06-07 13:27 | Outpatient (CLI) | payer MEDICARE, OTHER, SELFPAY ==
[2022-06-07 20:11] LABS: Add Manual Diff / Slide Review NO; Basophils Absolute Auto 0 /uL (0-100); Basophils Percent Auto 0.3 % (0-2); Eosinophils Absolute Auto 0 /uL (0-450); Eosinophils Percent Auto 0.2 % (2-4); Hematocrit 40.9 % (41-53); Hemoglobin 13.7 g/dL (13.5-17.5); Lymphocytes Absolute Auto 900 /uL (1100-4500); Lymphocytes Percent Auto 8.8 % (25-40); Mean Corpuscular HGB Conc 33.6 % (30-36); Mean Corpuscular Hemoglobin 31.8 PG (26-34); Mean Corpuscular Volume 94.6 fL (80-100); Monocytes Absolute Auto 400 /uL (0-900); Neutrophils Absolute Auto 8700 /uL (1500-7000); Neutrophils Percent Auto 86.7 % (50-75); Platelet Count 181 X10^3/uL (150-400); Red Blood Cell Count 4.32 X10^6/uL (4.5-5.9); Red Cell Distribution Width 14.4 % (11.6-14.8); White Blood Cell Count 10.1 X10^3/uL (4.5-11.0)
[2022-06-07 20:15] LABS: BUN Creatinine Ratio 21.6 (6-22); Blood Urea Nitrogen 19 mg/dL (9-20); Carbon Dioxide 25 mmol/L (22-32); Chloride 104 mmol/L (98-107); Estimated Glomerular Filt Rate > 60 mL/min (>60); Glucose 107 mg/dL (80-110); HEMOLYSIS < 15 (0-50); Potassium 4.6 mmol/L (3.4-5.1); Sodium 137 mmol/L (137-145)
== END ==
PROVIDERS: PCP Family Medicine; Visit Provider Family Medicine
DX: K21.9 Gastro-esophageal reflux disease without esophagitis (principal); C94.6 Myelodysplastic disease, not elsewhere classified; D64.9 Anemia, unspecified; D69.6 Thrombocytopenia, unspecified; E87.1 Hypo-osmolality and hyponatremia
CPT/HCPCS: 80048; 85025

== ENCOUNTER → 2022-07-03 11:22 | Outpatient (CLI) | payer MEDICARE, OTHER, SELFPAY ==
[2022-07-03 20:22] LABS: Add Manual Diff / Slide Review NO; Basophils Absolute Auto 0 /uL (0-100); Basophils Percent Auto 0.5 % (0-2); Eosinophils Absolute Auto 100 /uL (0-450); Eosinophils Percent Auto 0.7 % (2-4); Hematocrit 44.4 % (41-53); Hemoglobin 14.9 g/dL (13.5-17.5); Lymphocytes Absolute Auto 800 /uL (1100-4500); Lymphocytes Percent Auto 8.3 % (25-40); Mean Corpuscular HGB Conc 33.6 % (30-36); Mean Corpuscular Hemoglobin 31.8 PG (26-34); Mean Corpuscular Volume 94.6 fL (80-100); Monocytes Absolute Auto 500 /uL (0-900); Monocytes Percent Auto 5.8 % (3-14); Neutrophils Absolute Auto 7900 /uL (1500-7000); Neutrophils Percent Auto 84.7 % (50-75); Platelet Count 175 X10^3/uL (150-400); Red Blood Cell Count 4.69 X10^6/uL (4.5-5.9); Red Cell Distribution Width 14.2 % (11.6-14.8); White Blood Cell Count 9.4 X10^3/uL (4.5-11.0)
[2022-07-03 21:01] LABS: Hemoglobin A1C% w Est Avg Glu 6.3 % (4.0-6.0)
[2022-07-03 21:06] LABS: BUN Creatinine Ratio 23.1 (6-22); Blood Urea Nitrogen 21 mg/dL (9-20); Calcium 9.2 mg/dL (8.4-10.2); Carbon Dioxide 25 mmol/L (22-32); Chloride 105 mmol/L (98-107); Cholesterol 155 mg/dL (140-199); Estimated Glomerular Filt Rate > 60 mL/min (>60); Glucose 104 mg/dL (80-110); HDL Cholesterol 56 mg/dL (40-60); HEMOLYSIS 29 (0-50); LDL Cholesterol Calculated 74 mg/dL (<100); Potassium 4.6 mmol/L (3.4-5.1); Sodium 138 mmol/L (137-145); Triglycerides 124 mg/dL (35-150)
== END ==
PROVIDERS: PCP Family Medicine; Visit Provider Family Medicine
DX: E78.6 Lipoprotein deficiency (principal); D64.9 Anemia, unspecified; E74.39 Other disorders of intestinal carbohydrate absorption; C94.6 Myelodysplastic disease, not elsewhere classified; D69.6 Thrombocytopenia, unspecified; E87.1 Hypo-osmolality and hyponatremia
CPT/HCPCS: 80048; 80061; 83036; 85025

== ENCOUNTER → 2022-07-17 11:49 | Outpatient (CLI) | payer MEDICARE, OTHER, SELFPAY ==
[2022-07-17 20:28] LABS: Add Manual Diff / Slide Review NO; Basophils Absolute Auto 100 /uL (0-100); Basophils Percent Auto 0.9 % (0-2); Eosinophils Absolute Auto 100 /uL (0-450); Eosinophils Percent Auto 1.1 % (2-4); Hematocrit 40.5 % (41-53); Hemoglobin 13.8 g/dL (13.5-17.5); Lymphocytes Absolute Auto 1700 /uL (1100-4500); Lymphocytes Percent Auto 23.1 % (25-40); Mean Corpuscular HGB Conc 34.1 % (30-36); Mean Corpuscular Hemoglobin 31.9 PG (26-34); Mean Corpuscular Volume 93.5 fL (80-100); Monocytes Absolute Auto 800 /uL (0-900); Monocytes Percent Auto 11.1 % (3-14); Neutrophils Absolute Auto 4600 /uL (1500-7000); Neutrophils Percent Auto 63.8 % (50-75); Platelet Count 171 X10^3/uL (150-400); Red Blood Cell Count 4.33 X10^6/uL (4.5-5.9); Red Cell Distribution Width 14.1 % (11.6-14.8); White Blood Cell Count 7.3 X10^3/uL (4.5-11.0)
[2022-07-17 20:35] LABS: Hemoglobin A1C% w Est Avg Glu 6.1 % (4.0-6.0)
== END ==
PROVIDERS: PCP Family Medicine; Visit Provider Physician Assistant
DX: R73.9 Hyperglycemia, unspecified (principal); C94.6 Myelodysplastic disease, not elsewhere classified; D69.6 Thrombocytopenia, unspecified
CPT/HCPCS: 83036; 85025

== ENCOUNTER → 2022-08-14 08:59 | Outpatient (CLI) | payer MEDICARE, OTHER, SELFPAY ==
[2022-08-14 18:48] LABS: Add Manual Diff / Slide Review NO; Basophils Absolute Auto 0 /uL (0-100); Basophils Percent Auto 0.3 % (0-2); Eosinophils Absolute Auto 100 /uL (0-450); Eosinophils Percent Auto 2.6 % (2-4); Hematocrit 38.1 % (41-53); Hemoglobin 13.2 g/dL (13.5-17.5); Lymphocytes Absolute Auto 1200 /uL (1100-4500); Lymphocytes Percent Auto 21.2 % (25-40); Mean Corpuscular HGB Conc 34.5 % (30-36); Mean Corpuscular Hemoglobin 31.6 PG (26-34); Mean Corpuscular Volume 91.6 fL (80-100); Monocytes Absolute Auto 800 /uL (0-900); Monocytes Percent Auto 14.8 % (3-14); Neutrophils Absolute Auto 3400 /uL (1500-7000); Neutrophils Percent Auto 61.1 % (50-75); Platelet Count 163 X10^3/uL (150-400); Red Blood Cell Count 4.16 X10^6/uL (4.5-5.9); Red Cell Distribution Width 14.2 % (11.6-14.8); White Blood Cell Count 5.6 X10^3/uL (4.5-11.0)
== END ==
PROVIDERS: PCP Family Medicine; Visit Provider Family Medicine
DX: K21.9 Gastro-esophageal reflux disease without esophagitis (principal); C94.6 Myelodysplastic disease, not elsewhere classified
CPT/HCPCS: 85025

== ENCOUNTER → 2022-08-28 08:58 | Outpatient (CLI) | payer MEDICARE, OTHER, SELFPAY ==
[2022-08-28 19:31] LABS: Add Manual Diff / Slide Review NO; Basophils Absolute Auto 0 /uL (0-100); Basophils Percent Auto 0.7 % (0-2); Eosinophils Absolute Auto 100 /uL (0-450); Hematocrit 39.9 % (41-53); Hemoglobin 13.7 g/dL (13.5-17.5); Lymphocytes Absolute Auto 1200 /uL (1100-4500); Lymphocytes Percent Auto 23.8 % (25-40); Mean Corpuscular HGB Conc 34.3 % (30-36); Mean Corpuscular Hemoglobin 31.8 PG (26-34); Mean Corpuscular Volume 92.7 fL (80-100); Monocytes Absolute Auto 700 /uL (0-900); Monocytes Percent Auto 13.9 % (3-14); Neutrophils Absolute Auto 2900 /uL (1500-7000); Neutrophils Percent Auto 58.6 % (50-75); Platelet Count 133 X10^3/uL (150-400); Red Blood Cell Count 4.31 X10^6/uL (4.5-5.9); Red Cell Distribution Width 13.5 % (11.6-14.8); White Blood Cell Count 4.9 X10^3/uL (4.5-11.0)
[2022-08-28 19:45] LABS: BUN Creatinine Ratio 15.5 (6-22); Blood Urea Nitrogen 16 mg/dL (9-20); Calcium 8.7 mg/dL (8.4-10.2); Carbon Dioxide 25 mmol/L (22-32); Chloride 106 mmol/L (98-107); Estimated Glomerular Filt Rate > 60 mL/min (>60); Glucose 93 mg/dL (80-110); HEMOLYSIS < 15 (0-50); Sodium 139 mmol/L (137-145)
[2022-08-28 20:38] LABS: Erythrocyte Sedimentation Rate 7 MM/HR (0-15)
== END ==
PROVIDERS: PCP Family Medicine; Visit Provider Family Medicine
DX: K21.9 Gastro-esophageal reflux disease without esophagitis (principal); C94.6 Myelodysplastic disease, not elsewhere classified; D64.9 Anemia, unspecified; D69.6 Thrombocytopenia, unspecified; E74.39 Other disorders of intestinal carbohydrate absorption; E87.1 Hypo-osmolality and hyponatremia; R73.9 Hyperglycemia, unspecified
CPT/HCPCS: 80048; 85025; 85651

== ENCOUNTER → 2022-09-13 10:50 | Outpatient (CLI) | payer MEDICARE, OTHER, SELFPAY ==
[2022-09-13 12:33] LABS: Add Manual Diff / Slide Review NO; Basophils Absolute Auto 0 /uL (0-100); Basophils Percent Auto 0.3 % (0-2); Eosinophils Absolute Auto 100 /uL (0-450); Eosinophils Percent Auto 2.1 % (2-4); Hematocrit 41.3 % (41-53); Lymphocytes Absolute Auto 1200 /uL (1100-4500); Lymphocytes Percent Auto 19.9 % (25-40); Mean Corpuscular HGB Conc 33.8 % (30-36); Mean Corpuscular Hemoglobin 31.3 PG (26-34); Mean Corpuscular Volume 92.8 fL (80-100); Monocytes Absolute Auto 800 /uL (0-900); Monocytes Percent Auto 12.5 % (3-14); Neutrophils Absolute Auto 4000 /uL (1500-7000); Neutrophils Percent Auto 65.2 % (50-75); Platelet Count 97 X10^3/uL (150-400); Red Blood Cell Count 4.45 X10^6/uL (4.5-5.9); Red Cell Distribution Width 13.4 % (11.6-14.8); White Blood Cell Count 6.1 X10^3/uL (4.5-11.0)
[2022-09-13 12:45] LABS: Hemoglobin A1C% w Est Avg Glu 5.7 % (4.0-6.0)
[2022-09-13 12:49] LABS: Alanine Aminotransferase 19 IU/L (<50); Albumin Globulin Ratio 1.4 (1.0-2.8); Alkaline Phosphatase 100 U/L (38-126); Aspartate Aminotransferase 23 IU/L (17-59); Bilirubin Total 1.9 mg/dL (0.2-1.3); Bilirubin Unconjugated 1.8 mg/dL (0.0-1.1); Globulin 2.9 g/dL (1.7-4.1); HEMOLYSIS < 15 (0-50); Total Protein 6.9 g/dL (6.3-8.2)
== END ==
PROVIDERS: PCP Family Medicine; Referring Provider Family Medicine; Visit Provider Family Medicine
DX: K21.9 Gastro-esophageal reflux disease without esophagitis (principal); R73.9 Hyperglycemia, unspecified; C94.6 Myelodysplastic disease, not elsewhere classified; E74.39 Other disorders of intestinal carbohydrate absorption
CPT/HCPCS: 36415; 80076; 83036; 85025

== ENCOUNTER → 2022-09-25 09:07 | Outpatient (CLI) | payer MEDICARE, OTHER, SELFPAY ==
[2022-09-25 19:15] LABS: Add Manual Diff / Slide Review NO; Basophils Absolute Auto 0 /uL (0-100); Basophils Percent Auto 0.3 % (0-2); Eosinophils Absolute Auto 100 /uL (0-450); Eosinophils Percent Auto 2.1 % (2-4); Hematocrit 39.6 % (41-53); Hemoglobin 13.6 g/dL (13.5-17.5); Lymphocytes Absolute Auto 1500 /uL (1100-4500); Lymphocytes Percent Auto 23.1 % (25-40); Mean Corpuscular HGB Conc 34.2 % (30-36); Mean Corpuscular Hemoglobin 31.2 PG (26-34); Monocytes Absolute Auto 800 /uL (0-900); Monocytes Percent Auto 11.6 % (3-14); Neutrophils Absolute Auto 4200 /uL (1500-7000); Neutrophils Percent Auto 62.9 % (50-75); Platelet Count 152 X10^3/uL (150-400); Red Blood Cell Count 4.35 X10^6/uL (4.5-5.9); Red Cell Distribution Width 13.3 % (11.6-14.8); White Blood Cell Count 6.6 X10^3/uL (4.5-11.0)
[2022-09-25 20:43] LABS: Vitamin B12 949 pg/mL (239-931)
== END ==
PROVIDERS: PCP Family Medicine; Visit Provider Family Medicine
DX: K21.9 Gastro-esophageal reflux disease without esophagitis (principal); C94.6 Myelodysplastic disease, not elsewhere classified; D64.9 Anemia, unspecified
CPT/HCPCS: 82607; 85025

== ENCOUNTER → 2022-10-09 09:28 | Outpatient (CLI) | payer MEDICARE, OTHER, SELFPAY ==
[2022-10-09 20:13] LABS: Add Manual Diff / Slide Review NO; Basophils Absolute Auto 100 /uL (0-100); Basophils Percent Auto 0.8 % (0-2); Eosinophils Absolute Auto 100 /uL (0-450); Eosinophils Percent Auto 1.6 % (2-4); Hematocrit 39.8 % (41-53); Hemoglobin 13.5 g/dL (13.5-17.5); Lymphocytes Absolute Auto 2000 /uL (1100-4500); Lymphocytes Percent Auto 27.9 % (25-40); Mean Corpuscular HGB Conc 33.9 % (30-36); Mean Corpuscular Hemoglobin 30.9 PG (26-34); Mean Corpuscular Volume 91.3 fL (80-100); Monocytes Absolute Auto 700 /uL (0-900); Monocytes Percent Auto 10.2 % (3-14); Neutrophils Absolute Auto 4300 /uL (1500-7000); Neutrophils Percent Auto 59.5 % (50-75); Platelet Count 167 X10^3/uL (150-400); Red Blood Cell Count 4.36 X10^6/uL (4.5-5.9); Red Cell Distribution Width 13.6 % (11.6-14.8); White Blood Cell Count 7.2 X10^3/uL (4.5-11.0)
== END ==
PROVIDERS: PCP Family Medicine; Visit Provider Family Medicine
DX: K21.9 Gastro-esophageal reflux disease without esophagitis (principal); C94.6 Myelodysplastic disease, not elsewhere classified
CPT/HCPCS: 85025

== ENCOUNTER → 2022-11-06 09:05 | Outpatient (CLI) | payer MEDICARE, OTHER, SELFPAY ==
[2022-11-06 19:21] LABS: Add Manual Diff / Slide Review NO; Basophils Absolute Auto 0 /uL (0-100); Basophils Percent Auto 0.6 % (0-2); Eosinophils Absolute Auto 100 /uL (0-450); Eosinophils Percent Auto 1.8 % (2-4); Hematocrit 39.8 % (41-53); Hemoglobin 13.6 g/dL (13.5-17.5); Lymphocytes Absolute Auto 1300 /uL (1100-4500); Lymphocytes Percent Auto 18.6 % (25-40); Mean Corpuscular HGB Conc 34.1 % (30-36); Mean Corpuscular Hemoglobin 30.9 PG (26-34); Mean Corpuscular Volume 90.6 fL (80-100); Monocytes Absolute Auto 600 /uL (0-900); Neutrophils Absolute Auto 5000 /uL (1500-7000); Platelet Count 143 X10^3/uL (150-400); Red Cell Distribution Width 13.8 % (11.6-14.8); White Blood Cell Count 7.1 X10^3/uL (4.5-11.0)
== END ==
PROVIDERS: PCP Family Medicine; Visit Provider Family Medicine
DX: C94.6 Myelodysplastic disease, not elsewhere classified (principal); D69.3 Immune thrombocytopenic purpura; D64.9 Anemia, unspecified
CPT/HCPCS: 85025

== ENCOUNTER → 2022-11-20 09:08 | Outpatient (CLI) | payer MEDICARE, OTHER, SELFPAY ==
[2022-11-20 19:40] LABS: Add Manual Diff / Slide Review NO; Basophils Absolute Auto 0 /uL (0-100); Basophils Percent Auto 0.3 % (0-2); Eosinophils Absolute Auto 0 /uL (0-450); Eosinophils Percent Auto 0.5 % (2-4); Hematocrit 42.5 % (41-53); Hemoglobin 14.2 g/dL (13.5-17.5); Lymphocytes Absolute Auto 1500 /uL (1100-4500); Lymphocytes Percent Auto 17.9 % (25-40); Mean Corpuscular HGB Conc 33.3 % (30-36); Mean Corpuscular Hemoglobin 30.4 PG (26-34); Mean Corpuscular Volume 91.2 fL (80-100); Monocytes Absolute Auto 600 /uL (0-900); Monocytes Percent Auto 7.2 % (3-14); Neutrophils Absolute Auto 6300 /uL (1500-7000); Neutrophils Percent Auto 74.1 % (50-75); Platelet Count 160 X10^3/uL (150-400); Red Blood Cell Count 4.66 X10^6/uL (4.5-5.9); Red Cell Distribution Width 14.8 % (11.6-14.8); White Blood Cell Count 8.5 X10^3/uL (4.5-11.0)
== END ==
PROVIDERS: PCP Family Medicine; Visit Provider Family Medicine
DX: D69.6 Thrombocytopenia, unspecified (principal); C94.6 Myelodysplastic disease, not elsewhere classified; D64.9 Anemia, unspecified
CPT/HCPCS: 85025

== ENCOUNTER → 2022-12-04 09:04 | Outpatient (CLI) | payer MEDICARE, OTHER, SELFPAY ==
[2022-12-04 19:11] LABS: Add Manual Diff / Slide Review NO; Basophils Absolute Auto 0 /uL (0-100); Basophils Percent Auto 0.7 % (0-2); Eosinophils Absolute Auto 200 /uL (0-450); Eosinophils Percent Auto 2.6 % (2-4); Hematocrit 40.5 % (41-53); Hemoglobin 13.7 g/dL (13.5-17.5); Lymphocytes Absolute Auto 1800 /uL (1100-4500); Lymphocytes Percent Auto 27.3 % (25-40); Mean Corpuscular HGB Conc 33.8 % (30-36); Mean Corpuscular Hemoglobin 30.9 PG (26-34); Mean Corpuscular Volume 91.3 fL (80-100); Monocytes Absolute Auto 700 /uL (0-900); Monocytes Percent Auto 11.2 % (3-14); Neutrophils Absolute Auto 3800 /uL (1500-7000); Neutrophils Percent Auto 58.2 % (50-75); Platelet Count 154 X10^3/uL (150-400); Red Blood Cell Count 4.43 X10^6/uL (4.5-5.9); Red Cell Distribution Width 15.2 % (11.6-14.8); White Blood Cell Count 6.5 X10^3/uL (4.5-11.0)
== END ==
PROVIDERS: PCP Family Medicine; Visit Provider Family Medicine
DX: C94.6 Myelodysplastic disease, not elsewhere classified (principal); K21.9 Gastro-esophageal reflux disease without esophagitis
CPT/HCPCS: 85025

== ENCOUNTER → 2022-12-18 08:51 | Outpatient (CLI) | payer MEDICARE, OTHER, SELFPAY ==
[2022-12-18 19:14] LABS: Add Manual Diff / Slide Review NO; Basophils Absolute Auto 0 /uL (0-100); Basophils Percent Auto 0.7 % (0-2); Eosinophils Absolute Auto 100 /uL (0-450); Eosinophils Percent Auto 1.9 % (2-4); Hematocrit 39.9 % (41-53); Hemoglobin 13.3 g/dL (13.5-17.5); Lymphocytes Absolute Auto 1800 /uL (1100-4500); Lymphocytes Percent Auto 25.1 % (25-40); Mean Corpuscular HGB Conc 33.3 % (30-36); Mean Corpuscular Hemoglobin 30.5 PG (26-34); Mean Corpuscular Volume 91.6 fL (80-100); Monocytes Absolute Auto 1000 /uL (0-900); Monocytes Percent Auto 13.8 % (3-14); Neutrophils Absolute Auto 4100 /uL (1500-7000); Neutrophils Percent Auto 58.5 % (50-75); Platelet Count 180 X10^3/uL (150-400); Red Blood Cell Count 4.36 X10^6/uL (4.5-5.9); Red Cell Distribution Width 14.9 % (11.6-14.8)
== END ==
PROVIDERS: PCP Family Medicine; Visit Provider Family Medicine
DX: C94.6 Myelodysplastic disease, not elsewhere classified (principal); D69.6 Thrombocytopenia, unspecified
CPT/HCPCS: 85025

== ENCOUNTER → 2023-01-01 08:56 | Outpatient (CLI) | payer MEDICARE, OTHER, SELFPAY ==
[2023-01-01 19:37] LABS: Add Manual Diff / Slide Review NO; Basophils Absolute Auto 0 /uL (0-100); Basophils Percent Auto 0.6 % (0-2); Eosinophils Absolute Auto 200 /uL (0-450); Eosinophils Percent Auto 2.9 % (2-4); Hematocrit 39.2 % (41-53); Hemoglobin 13.1 g/dL (13.5-17.5); Lymphocytes Absolute Auto 1600 /uL (1100-4500); Lymphocytes Percent Auto 26.3 % (25-40); Mean Corpuscular HGB Conc 33.4 % (30-36); Mean Corpuscular Volume 92.7 fL (80-100); Monocytes Absolute Auto 700 /uL (0-900); Monocytes Percent Auto 11.2 % (3-14); Neutrophils Absolute Auto 3500 /uL (1500-7000); Platelet Count 182 X10^3/uL (150-400); Red Blood Cell Count 4.23 X10^6/uL (4.5-5.9)
== END ==
PROVIDERS: PCP Family Medicine; Visit Provider Family Medicine
DX: D69.6 Thrombocytopenia, unspecified; C94.6 Myelodysplastic disease, not elsewhere classified; D64.9 Anemia, unspecified
CPT/HCPCS: 85025

== ENCOUNTER → 2023-01-15 08:52 | Outpatient (CLI) | payer MEDICARE, OTHER, SELFPAY ==
[2023-01-15 19:51] LABS: Platelet Count 135 X10^3/uL (150-400)
[2023-01-15 19:52] LABS: Add Manual Diff / Slide Review NO; Basophils Absolute Auto 0 /uL (0-100); Basophils Percent Auto 0.5 % (0-2); Eosinophils Absolute Auto 100 /uL (0-450); Eosinophils Percent Auto 1.8 % (2-4); Hematocrit 38.4 % (41-53); Hemoglobin 13.4 g/dL (13.5-17.5); Lymphocytes Absolute Auto 2200 /uL (1100-4500); Lymphocytes Percent Auto 32.3 % (25-40); Mean Corpuscular HGB Conc 34.9 % (30-36); Mean Corpuscular Volume 91.5 fL (80-100); Monocytes Absolute Auto 700 /uL (0-900); Monocytes Percent Auto 10.8 % (3-14); Neutrophils Absolute Auto 3800 /uL (1500-7000); Neutrophils Percent Auto 54.6 % (50-75); Platelet Count 133 X10^3/uL (150-400); Red Blood Cell Count 4.19 X10^6/uL (4.5-5.9); Red Cell Distribution Width 15.5 % (11.6-14.8); White Blood Cell Count 6.9 X10^3/uL (4.5-11.0)
== END ==
PROVIDERS: PCP Family Medicine; Visit Provider Family Medicine
DX: K21.9 Gastro-esophageal reflux disease without esophagitis (principal); D69.6 Thrombocytopenia, unspecified
CPT/HCPCS: 85025; 85049

== ENCOUNTER → 2023-01-23 | Outpatient (CLI) | payer MEDICARE, OTHER, SELFPAY ==
--- NOTE | 2023-01-23 11:56 | DI.RAD.S_ITS ---
Bone Density Report Name: BROWN ÁLVAREZ Age: 87 Sex: Male Ethnicity: White Date of : 1935 Indication: screening for osteoporosis; history of glucocorticoids; Referring Provider: BRIAN MCCULLOUGH Study: Bone densitometry was performed. Exam Date: January 23, 2023 Accession number: [id number] Bone Density: Region BMD T-score Z-score Classification AP Spine(L1, L2, L3) 0.904 -1.0 -0.2 Normal Femoral Neck (Left) 0.702 -1.3 0.0 Osteopenia Total Hip (Left) 0.922 -0.2 0.5 Normal Femoral Neck (Right) 0.736 -1.0 0.3 Normal Total Hip (Right) 0.917 -0.2 0.5 Normal Total Hip Mean 0.919 -0.2 0.5 Normal World Health Organization criteria for BMD impression classify patients as: Normal (T-score at or above -1.0), Osteopenia (T-score between -1.0 and -2.5), or Osteoporosis (T-score at or below -2.5). 10-year Fracture Risk(1): Major Osteoporotic Fracture 10% Hip Fracture 4.7% Reported Risk Factors: [place] (), Neck BMD=0.702, BMI=26.6, glucocorticoids (1) FRAX(R) Version 3.08. Fracture probability calculated for an untreated patient. Fracture probability may be lower if the patient has received treatment. Impression: The patient has low bone mass, based on the Left Femoral Neck T-score. The patient has an estimated ten-year risk of hip fracture of 4.7% and an estimated ten-year risk of major fracture of 10%, based on the WHO FRAX algorithm. The patient has risk factors, including: history of glucocorticoid therapy. Discussion: BONE DENSITY IS LOW AT ONE OR MORE SKELETAL SITES. THE PATIENT'S BMD AND CLINICAL RISK FACTORS CONTRIBUTE TO THIS PATIENT'S INCREASED RISK OF FRACTURE. This patient's lowest T-score is low at one or more skeletal sites. It meets the World Health Organization's (WHO) criteria for low bone mass (T-score between -1.0 and -2.5). The patient's 10-year risk of hip fracture as calculated by FRAX exceeds the threshold where pharmacological therapy is recommended by the National Osteoporosis Foundation (NOF). However, all treatment decisions require clinical judgment and consideration of individual patient factors, including patient preferences, comorbidities, previous drug use, risk factors not captured in the FRAX model (e.g., frailty, falls, vitamin D deficiency, increased bone turnover, interval significant decline in bone density) and possible under or overestimation of fracture risk by FRAX. The patient should follow a healthful lifestyle (good nutrition with adequate calcium and vitamin D, and appropriate weight-bearing exercise). Follow-Up: Consider repeating this study in 2 years to reassess this patient's status, or sooner if there is some new clinical indication. Reported by: AN CROUCH M.D. on 01/23/2023 12:32:00 PM.
== END ==
LOC: RAD 11:55
PROVIDERS: PCP Family Medicine; Referring Provider Family Medicine; Visit Provider Family Medicine
DX: Z79.52 Long term (current) use of systemic steroids (principal); E87.1 Hypo-osmolality and hyponatremia; Z13.820 Encounter for screening for osteoporosis; M85.852 Other specified disorders of bone density and structure, left thigh
CPT/HCPCS: 77080

== ENCOUNTER → 2023-01-29 08:04 | Outpatient (CLI) | payer MEDICARE, OTHER, SELFPAY ==
[2023-01-29 19:15] LABS: Add Manual Diff / Slide Review NO; Basophils Absolute Auto 0 /uL (0-100); Basophils Percent Auto 0.5 % (0-2); Eosinophils Absolute Auto 100 /uL (0-450); Eosinophils Percent Auto 1.4 % (2-4); Hemoglobin 13.2 g/dL (13.5-17.5); Lymphocytes Absolute Auto 2300 /uL (1100-4500); Lymphocytes Percent Auto 30.9 % (25-40); Mean Corpuscular Hemoglobin 31.8 PG (26-34); Mean Corpuscular Volume 93.8 fL (80-100); Monocytes Absolute Auto 800 /uL (0-900); Monocytes Percent Auto 10.2 % (3-14); Neutrophils Absolute Auto 4300 /uL (1500-7000); Platelet Count 157 X10^3/uL (150-400); Red Blood Cell Count 4.16 X10^6/uL (4.5-5.9); Red Cell Distribution Width 15.6 % (11.6-14.8); White Blood Cell Count 7.5 X10^3/uL (4.5-11.0)
[2023-01-29 19:31] LABS: BUN Creatinine Ratio 26.4 (6-22); Blood Urea Nitrogen 24 mg/dL (9-20); Carbon Dioxide 26 mmol/L (22-32); Chloride 104 mmol/L (98-107); Estimated Glomerular Filt Rate > 60 mL/min (>60); Glucose 94 mg/dL (80-110); HEMOLYSIS < 15 (0-50); Sodium 138 mmol/L (137-145)
== END ==
PROVIDERS: PCP Family Medicine; Visit Provider Family Medicine
DX: E87.1 Hypo-osmolality and hyponatremia (principal); K21.9 Gastro-esophageal reflux disease without esophagitis; D69.6 Thrombocytopenia, unspecified; C94.6 Myelodysplastic disease, not elsewhere classified; D64.9 Anemia, unspecified
CPT/HCPCS: 80048; 85025

== ENCOUNTER → 2023-02-26 08:58 | Outpatient (CLI) | payer MEDICARE, OTHER, SELFPAY ==
[2023-02-26 20:04] LABS: Add Manual Diff / Slide Review NO; Basophils Absolute Auto 100 /uL (0-100); Basophils Percent Auto 0.7 % (0-2); Eosinophils Absolute Auto 100 /uL (0-450); Hematocrit 37.8 % (41-53); Lymphocytes Absolute Auto 2300 /uL (1100-4500); Mean Corpuscular HGB Conc 34.5 % (30-36); Mean Corpuscular Volume 92.8 fL (80-100); Monocytes Absolute Auto 800 /uL (0-900); Monocytes Percent Auto 9.6 % (3-14); Neutrophils Absolute Auto 5500 /uL (1500-7000); Neutrophils Percent Auto 62.7 % (50-75); Platelet Count 189 X10^3/uL (150-400); Red Blood Cell Count 4.07 X10^6/uL (4.5-5.9); Red Cell Distribution Width 14.3 % (11.6-14.8); White Blood Cell Count 8.7 X10^3/uL (4.5-11.0)
== END ==
PROVIDERS: PCP Family Medicine; Visit Provider Family Medicine
DX: K21.9 Gastro-esophageal reflux disease without esophagitis (principal); D69.6 Thrombocytopenia, unspecified; C94.6 Myelodysplastic disease, not elsewhere classified; D64.9 Anemia, unspecified
CPT/HCPCS: 85025

== ENCOUNTER → 2023-03-28 09:12 | Outpatient (CLI) | payer MEDICARE, OTHER, SELFPAY ==
[2023-03-28 10:07] LABS: Add Manual Diff / Slide Review NO; Basophils Absolute Auto 0 /uL (0-100); Basophils Percent Auto 0.2 % (0-2); Eosinophils Absolute Auto 100 /uL (0-450); Eosinophils Percent Auto 0.8 % (2-4); Hemoglobin 14.2 g/dL (13.5-17.5); Lymphocytes Absolute Auto 1100 /uL (1100-4500); Lymphocytes Percent Auto 14.5 % (25-40); Mean Corpuscular HGB Conc 34.7 % (30-36); Mean Corpuscular Volume 92.1 fL (80-100); Monocytes Absolute Auto 400 /uL (0-900); Monocytes Percent Auto 5.2 % (3-14); Neutrophils Absolute Auto 6100 /uL (1500-7000); Neutrophils Percent Auto 79.3 % (50-75); Platelet Count 181 X10^3/uL (150-400); Red Blood Cell Count 4.45 X10^6/uL (4.5-5.9); Red Cell Distribution Width 14.4 % (11.6-14.8); White Blood Cell Count 7.7 X10^3/uL (4.5-11.0)
== END ==
PROVIDERS: PCP Family Medicine; Referring Provider Family Medicine; Visit Provider Family Medicine
DX: K21.9 Gastro-esophageal reflux disease without esophagitis (principal); C94.6 Myelodysplastic disease, not elsewhere classified; D64.9 Anemia, unspecified; D69.6 Thrombocytopenia, unspecified
CPT/HCPCS: 36415; 85025

== ENCOUNTER → 2023-04-25 12:57 | Outpatient (CLI) | payer MEDICARE, OTHER, SELFPAY ==
[2023-04-25 20:22] LABS: Add Manual Diff / Slide Review NO; Basophils Absolute Auto 0 /uL (0-100); Basophils Percent Auto 0.4 % (0-2); Eosinophils Absolute Auto 100 /uL (0-450); Eosinophils Percent Auto 1.5 % (2-4); Hematocrit 41.5 % (41-53); Hemoglobin 14.2 g/dL (13.5-17.5); Lymphocytes Absolute Auto 1100 /uL (1100-4500); Lymphocytes Percent Auto 16.7 % (25-40); Mean Corpuscular HGB Conc 34.3 % (30-36); Mean Corpuscular Hemoglobin 32.4 PG (26-34); Mean Corpuscular Volume 94.3 fL (80-100); Monocytes Absolute Auto 600 /uL (0-900); Monocytes Percent Auto 9.7 % (3-14); Neutrophils Absolute Auto 4700 /uL (1500-7000); Neutrophils Percent Auto 71.7 % (50-75); Platelet Count 173 X10^3/uL (150-400); Red Cell Distribution Width 13.9 % (11.6-14.8); White Blood Cell Count 6.5 X10^3/uL (4.5-11.0)
== END ==
PROVIDERS: PCP Family Medicine; Visit Provider Family Medicine
DX: K21.9 Gastro-esophageal reflux disease without esophagitis (principal); C94.6 Myelodysplastic disease, not elsewhere classified; D64.9 Anemia, unspecified; D69.6 Thrombocytopenia, unspecified
CPT/HCPCS: 85025

== ENCOUNTER → 2023-05-30 13:01 | Outpatient (CLI) | payer MEDICARE, OTHER, SELFPAY ==
[2023-05-30 19:57] LABS: Add Manual Diff / Slide Review NO; Basophils Absolute Auto 0 /uL (0-100); Basophils Percent Auto 0.4 % (0-2); Eosinophils Absolute Auto 200 /uL (0-450); Eosinophils Percent Auto 2.3 % (2-4); Hematocrit 39.7 % (41-53); Hemoglobin 13.6 g/dL (13.5-17.5); Lymphocytes Absolute Auto 1200 /uL (1100-4500); Lymphocytes Percent Auto 17.2 % (25-40); Mean Corpuscular HGB Conc 34.2 % (30-36); Mean Corpuscular Volume 93.6 fL (80-100); Monocytes Absolute Auto 600 /uL (0-900); Monocytes Percent Auto 8.7 % (3-14); Neutrophils Absolute Auto 4900 /uL (1500-7000); Neutrophils Percent Auto 71.4 % (50-75); Platelet Count 131 X10^3/uL (150-400); Red Blood Cell Count 4.24 X10^6/uL (4.5-5.9); Red Cell Distribution Width 13.7 % (11.6-14.8); White Blood Cell Count 6.9 X10^3/uL (4.5-11.0)
== END ==
PROVIDERS: PCP Family Medicine; Visit Provider Family Medicine
DX: K21.9 Gastro-esophageal reflux disease without esophagitis (principal); C94.6 Myelodysplastic disease, not elsewhere classified; D64.9 Anemia, unspecified; D69.6 Thrombocytopenia, unspecified
CPT/HCPCS: 85025

== ENCOUNTER → 2023-06-08 10:42 | Outpatient (CLI) | payer MEDICARE, OTHER, SELFPAY ==
[2023-06-08 11:22] LABS: Add Manual Diff / Slide Review NO; Basophils Absolute Auto 0 /uL (0-100); Basophils Percent Auto 0.7 % (0-2); Eosinophils Absolute Auto 100 /uL (0-450); Eosinophils Percent Auto 1.8 % (2-4); Hematocrit 42.2 % (41-53); Hemoglobin 14.3 g/dL (13.5-17.5); Lymphocytes Absolute Auto 1300 /uL (1100-4500); Lymphocytes Percent Auto 18.6 % (25-40); Mean Corpuscular HGB Conc 33.9 % (30-36); Mean Corpuscular Hemoglobin 31.8 PG (26-34); Mean Corpuscular Volume 93.8 fL (80-100); Monocytes Absolute Auto 500 /uL (0-900); Monocytes Percent Auto 7.9 % (3-14); Neutrophils Absolute Auto 4800 /uL (1500-7000); Platelet Count 125 X10^3/uL (150-400); Red Cell Distribution Width 13.9 % (11.6-14.8); White Blood Cell Count 6.7 X10^3/uL (4.5-11.0)
[2023-06-08 12:37] LABS: Vitamin B12 880 pg/mL (239-931)
== END ==
PROVIDERS: PCP Family Medicine; Referring Provider Family Medicine; Visit Provider Family Medicine
DX: K21.9 Gastro-esophageal reflux disease without esophagitis (principal); D64.9 Anemia, unspecified
CPT/HCPCS: 36415; 82607; 85025

== ENCOUNTER → 2023-06-27 11:56 | Outpatient (CLI) | payer MEDICARE, OTHER, SELFPAY ==
[2023-06-27 13:17] LABS: Add Manual Diff / Slide Review NO; Basophils Absolute Auto 0 /uL (0-100); Basophils Percent Auto 0.5 % (0-2); Eosinophils Absolute Auto 200 /uL (0-450); Eosinophils Percent Auto 3.4 % (2-4); Hemoglobin 13.9 g/dL (13.5-17.5); Lymphocytes Absolute Auto 1400 /uL (1100-4500); Lymphocytes Percent Auto 25.4 % (25-40); Mean Corpuscular Hemoglobin 31.5 PG (26-34); Mean Corpuscular Volume 92.7 fL (80-100); Monocytes Absolute Auto 600 /uL (0-900); Monocytes Percent Auto 10.9 % (3-14); Neutrophils Absolute Auto 3300 /uL (1500-7000); Neutrophils Percent Auto 59.8 % (50-75); Platelet Count 120 X10^3/uL (150-400); Red Blood Cell Count 4.42 X10^6/uL (4.5-5.9); Red Cell Distribution Width 13.7 % (11.6-14.8); White Blood Cell Count 5.6 X10^3/uL (4.5-11.0)
== END ==
PROVIDERS: PCP Family Medicine; Referring Provider Family Medicine; Visit Provider Family Medicine
DX: K21.9 Gastro-esophageal reflux disease without esophagitis (principal); C94.6 Myelodysplastic disease, not elsewhere classified; D64.9 Anemia, unspecified; D69.6 Thrombocytopenia, unspecified
CPT/HCPCS: 36415; 85025

== ENCOUNTER → 2023-07-09 12:46 | Outpatient (CLI) | payer MEDICARE, OTHER, SELFPAY ==
[2023-07-09 13:56] LABS: Add Manual Diff / Slide Review NO; Basophils Absolute Auto 0 /uL (0-100); Basophils Percent Auto 0.2 % (0-2); Eosinophils Absolute Auto 0 /uL (0-450); Eosinophils Percent Auto 0.2 % (2-4); Hematocrit 41.6 % (41-53); Hemoglobin 14.1 g/dL (13.5-17.5); Lymphocytes Absolute Auto 1100 /uL (1100-4500); Lymphocytes Percent Auto 13.8 % (25-40); Mean Corpuscular HGB Conc 33.9 % (30-36); Mean Corpuscular Hemoglobin 31.3 PG (26-34); Mean Corpuscular Volume 92.3 fL (80-100); Monocytes Absolute Auto 300 /uL (0-900); Monocytes Percent Auto 3.8 % (3-14); Neutrophils Absolute Auto 6500 /uL (1500-7000); Platelet Count 159 X10^3/uL (150-400); Red Blood Cell Count 4.51 X10^6/uL (4.5-5.9); Red Cell Distribution Width 13.7 % (11.6-14.8)
== END ==
PROVIDERS: PCP Family Medicine; Referring Provider Family Medicine; Visit Provider Family Medicine
DX: K21.9 Gastro-esophageal reflux disease without esophagitis (principal); D64.9 Anemia, unspecified
CPT/HCPCS: 36415; 85025

== ENCOUNTER → 2023-07-29 13:06 | Outpatient (CLI) | payer MEDICARE, OTHER, SELFPAY ==
[2023-07-29 19:33] LABS: Add Manual Diff / Slide Review NO; Basophils Absolute Auto 0 /uL (0-100); Basophils Percent Auto 0.3 % (0-2); Eosinophils Absolute Auto 100 /uL (0-450); Eosinophils Percent Auto 0.9 % (2-4); Hemoglobin 14.3 g/dL (13.5-17.5); Lymphocytes Absolute Auto 1000 /uL (1100-4500); Lymphocytes Percent Auto 10.3 % (25-40); Mean Corpuscular HGB Conc 34.1 % (30-36); Mean Corpuscular Hemoglobin 31.7 PG (26-34); Mean Corpuscular Volume 93.1 fL (80-100); Monocytes Absolute Auto 500 /uL (0-900); Monocytes Percent Auto 5.2 % (3-14); Neutrophils Absolute Auto 7700 /uL (1500-7000); Neutrophils Percent Auto 83.3 % (50-75); Platelet Count 161 X10^3/uL (150-400); Red Blood Cell Count 4.51 X10^6/uL (4.5-5.9); Red Cell Distribution Width 13.8 % (11.6-14.8); White Blood Cell Count 9.3 X10^3/uL (4.5-11.0)
== END ==
PROVIDERS: PCP Family Medicine; Visit Provider Family Medicine
DX: D64.9 Anemia, unspecified (principal)
CPT/HCPCS: 85025

== ENCOUNTER → 2023-08-14 10:19 | Outpatient (CLI) | payer MEDICARE, OTHER, SELFPAY ==
[2023-08-14 19:15] LABS: Add Manual Diff / Slide Review NO; Basophils Absolute Auto 0 /uL (0-100); Basophils Percent Auto 0.4 % (0-2); Eosinophils Absolute Auto 100 /uL (0-450); Eosinophils Percent Auto 2.4 % (2-4); Hemoglobin 14.3 g/dL (13.5-17.5); Lymphocytes Absolute Auto 1600 /uL (1100-4500); Lymphocytes Percent Auto 27.9 % (25-40); Mean Corpuscular HGB Conc 34.1 % (30-36); Mean Corpuscular Hemoglobin 31.8 PG (26-34); Mean Corpuscular Volume 93.4 fL (80-100); Monocytes Absolute Auto 600 /uL (0-900); Monocytes Percent Auto 10.8 % (3-14); Neutrophils Absolute Auto 3300 /uL (1500-7000); Neutrophils Percent Auto 58.5 % (50-75); Platelet Count 164 X10^3/uL (150-400); Red Cell Distribution Width 13.8 % (11.6-14.8); White Blood Cell Count 5.6 X10^3/uL (4.5-11.0)
[2023-08-14 20:58] LABS: Prostate Specific Antigen 0.072 ng/mL (0.10-4.00)
== END ==
PROVIDERS: PCP Family Medicine; Visit Provider Family Medicine
DX: D64.9 Anemia, unspecified (principal); Z85.46 Personal history of malignant neoplasm of prostate
CPT/HCPCS: 84153; 85025

== ENCOUNTER → 2023-08-29 12:58 | Outpatient (CLI) | payer MEDICARE, OTHER, SELFPAY ==
[2023-08-29 21:11] LABS: Add Manual Diff / Slide Review NO; Basophils Absolute Auto 0 /uL (0-100); Basophils Percent Auto 0.6 % (0-2); Eosinophils Absolute Auto 0 /uL (0-450); Eosinophils Percent Auto 0.5 % (2-4); Hematocrit 40.4 % (41-53); Hemoglobin 14.1 g/dL (13.5-17.5); Lymphocytes Absolute Auto 1200 /uL (1100-4500); Mean Corpuscular HGB Conc 34.9 % (30-36); Mean Corpuscular Hemoglobin 31.6 PG (26-34); Mean Corpuscular Volume 90.6 fL (80-100); Monocytes Absolute Auto 500 /uL (0-900); Monocytes Percent Auto 7.6 % (3-14); Neutrophils Absolute Auto 5200 /uL (1500-7000); Neutrophils Percent Auto 74.3 % (50-75); Platelet Count 168 X10^3/uL (150-400); Red Blood Cell Count 4.46 X10^6/uL (4.5-5.9); Red Cell Distribution Width 13.9 % (11.6-14.8); White Blood Cell Count 7.1 X10^3/uL (4.5-11.0)
== END ==
PROVIDERS: PCP Family Medicine; Visit Provider Family Medicine
DX: K21.9 Gastro-esophageal reflux disease without esophagitis (principal)
CPT/HCPCS: 85025

== ENCOUNTER → 2023-09-26 11:54 | Outpatient (CLI) | payer MEDICARE, OTHER, SELFPAY ==
[2023-09-26 18:52] LABS: Add Manual Diff / Slide Review NO; Basophils Absolute Auto 0 /uL (0-100); Basophils Percent Auto 0.4 % (0-2); Eosinophils Absolute Auto 200 /uL (0-450); Eosinophils Percent Auto 2.3 % (2-4); Hematocrit 41.4 % (41-53); Hemoglobin 14.2 g/dL (13.5-17.5); Lymphocytes Absolute Auto 1200 /uL (1100-4500); Lymphocytes Percent Auto 16.9 % (25-40); Mean Corpuscular HGB Conc 34.3 % (30-36); Mean Corpuscular Hemoglobin 31.8 PG (26-34); Mean Corpuscular Volume 92.8 fL (80-100); Monocytes Absolute Auto 700 /uL (0-900); Monocytes Percent Auto 9.6 % (3-14); Neutrophils Absolute Auto 5000 /uL (1500-7000); Neutrophils Percent Auto 70.8 % (50-75); Platelet Count 162 X10^3/uL (150-400); Red Blood Cell Count 4.47 X10^6/uL (4.5-5.9); Red Cell Distribution Width 13.7 % (11.6-14.8)
== END ==
PROVIDERS: PCP Family Medicine; Visit Provider Family Medicine
DX: K21.9 Gastro-esophageal reflux disease without esophagitis (principal)
CPT/HCPCS: 85025

== ENCOUNTER → 2023-10-23 13:25 | Outpatient (CLI) | payer MEDICARE, OTHER, SELFPAY ==
[2023-10-23 19:38] LABS: Add Manual Diff / Slide Review NO; Basophils Absolute Auto 0 /uL (0-100); Basophils Percent Auto 0.4 % (0-2); Eosinophils Absolute Auto 200 /uL (0-450); Eosinophils Percent Auto 2.5 % (2-4); Hematocrit 40.8 % (41-53); Lymphocytes Absolute Auto 1200 /uL (1100-4500); Lymphocytes Percent Auto 19.8 % (25-40); Mean Corpuscular HGB Conc 34.3 % (30-36); Mean Corpuscular Hemoglobin 31.9 PG (26-34); Mean Corpuscular Volume 93.1 fL (80-100); Monocytes Absolute Auto 500 /uL (0-900); Monocytes Percent Auto 8.1 % (3-14); Neutrophils Absolute Auto 4200 /uL (1500-7000); Neutrophils Percent Auto 69.2 % (50-75); Platelet Count 155 X10^3/uL (150-400); Red Blood Cell Count 4.38 X10^6/uL (4.5-5.9); Red Cell Distribution Width 13.9 % (11.6-14.8); White Blood Cell Count 6.1 X10^3/uL (4.5-11.0)
== END ==
PROVIDERS: PCP Family Medicine; Visit Provider Family Medicine
DX: C94.6 Myelodysplastic disease, not elsewhere classified (principal)
CPT/HCPCS: 85025

== ENCOUNTER → 2023-11-04 11:03 | Outpatient (CLI) | payer MEDICARE, OTHER, SELFPAY ==
[2023-11-04 19:37] LABS: Add Manual Diff / Slide Review NO; Basophils Absolute Auto 0 /uL (0-100); Basophils Percent Auto 0.7 % (0-2); Eosinophils Absolute Auto 100 /uL (0-450); Eosinophils Percent Auto 2.4 % (2-4); Hematocrit 41.4 % (41-53); Hemoglobin 14.2 g/dL (13.5-17.5); Hemoglobin A1C% w Est Avg Glu 5.9 % (4.0-6.0); Lymphocytes Absolute Auto 1500 /uL (1100-4500); Lymphocytes Percent Auto 25.3 % (25-40); Mean Corpuscular HGB Conc 34.3 % (30-36); Mean Corpuscular Hemoglobin 31.6 PG (26-34); Mean Corpuscular Volume 92.1 fL (80-100); Monocytes Absolute Auto 800 /uL (0-900); Monocytes Percent Auto 12.9 % (3-14); Neutrophils Absolute Auto 3500 /uL (1500-7000); Neutrophils Percent Auto 58.7 % (50-75); Platelet Count 141 X10^3/uL (150-400); Red Cell Distribution Width 14.1 % (11.6-14.8)
== END ==
PROVIDERS: PCP Family Medicine; Visit Provider Family Medicine
DX: D64.9 Anemia, unspecified (principal); R73.9 Hyperglycemia, unspecified
CPT/HCPCS: 83036; 85025

== ENCOUNTER → 2023-11-27 13:53 | Outpatient (CLI) | payer MEDICARE, OTHER, SELFPAY ==
[2023-11-27 19:04] LABS: Add Manual Diff / Slide Review NO; Basophils Absolute Auto 0 /uL (0-100); Basophils Percent Auto 0.6 % (0-2); Eosinophils Absolute Auto 100 /uL (0-450); Eosinophils Percent Auto 2.1 % (2-4); Hematocrit 39.9 % (41-53); Hemoglobin 13.5 g/dL (13.5-17.5); Lymphocytes Absolute Auto 1500 /uL (1100-4500); Lymphocytes Percent Auto 24.4 % (25-40); Mean Corpuscular HGB Conc 33.9 % (30-36); Mean Corpuscular Hemoglobin 31.2 PG (26-34); Mean Corpuscular Volume 92.2 fL (80-100); Monocytes Absolute Auto 700 /uL (0-900); Neutrophils Absolute Auto 3700 /uL (1500-7000); Neutrophils Percent Auto 61.9 % (50-75); Platelet Count 135 X10^3/uL (150-400); Red Blood Cell Count 4.33 X10^6/uL (4.5-5.9); Red Cell Distribution Width 13.6 % (11.6-14.8); White Blood Cell Count 6.1 X10^3/uL (4.5-11.0)
[2023-11-27 19:12] LABS: Glucose 101 mg/dL (80-110)
== END ==
PROVIDERS: PCP Family Medicine; Visit Provider Family Medicine
DX: R73.9 Hyperglycemia, unspecified (principal); E87.1 Hypo-osmolality and hyponatremia; D69.6 Thrombocytopenia, unspecified; C94.6 Myelodysplastic disease, not elsewhere classified
CPT/HCPCS: 82947; 83036; 85025

== ENCOUNTER → 2023-12-31 11:55 | Outpatient (CLI) | payer MEDICARE, OTHER, SELFPAY ==
[2023-12-31 19:28] LABS: Add Manual Diff / Slide Review NO; Basophils Absolute Auto 0 /uL (0-100); Basophils Percent Auto 0.3 % (0-2); Eosinophils Absolute Auto 200 /uL (0-450); Eosinophils Percent Auto 2.2 % (2-4); Hematocrit 40.6 % (41-53); Hemoglobin 13.7 g/dL (13.5-17.5); Lymphocytes Absolute Auto 1200 /uL (1100-4500); Lymphocytes Percent Auto 16.7 % (25-40); Mean Corpuscular HGB Conc 33.9 % (30-36); Mean Corpuscular Hemoglobin 31.3 PG (26-34); Mean Corpuscular Volume 92.4 fL (80-100); Monocytes Absolute Auto 600 /uL (0-900); Monocytes Percent Auto 8.7 % (3-14); Neutrophils Absolute Auto 5200 /uL (1500-7000); Neutrophils Percent Auto 72.1 % (50-75); Platelet Count 142 X10^3/uL (150-400); Red Blood Cell Count 4.39 X10^6/uL (4.5-5.9); Red Cell Distribution Width 13.9 % (11.6-14.8); White Blood Cell Count 7.2 X10^3/uL (4.5-11.0)
== END ==
LOC: LAB 11:55
PROVIDERS: PCP Family Medicine; Visit Provider Family Medicine
DX: D64.9 Anemia, unspecified (principal)
CPT/HCPCS: 85025

== ENCOUNTER → 2024-01-14 09:00 | Outpatient (CLI) | payer MEDICARE, OTHER, SELFPAY ==
[2024-01-16 20:40] LABS: Fecal Immunochemical Test Negative (Negative)
== END ==
PROVIDERS: PCP Family Medicine; Visit Provider Family Medicine
DX: D64.9 Anemia, unspecified (principal)
CPT/HCPCS: 82274

== ENCOUNTER → 2024-01-29 10:59 | Outpatient (CLI) | payer MEDICARE, OTHER, SELFPAY ==
[2024-01-29 19:24] LABS: Add Manual Diff / Slide Review NO; Basophils Absolute Auto 0 /uL (0-100); Basophils Percent Auto 0.3 % (0-2); Eosinophils Absolute Auto 100 /uL (0-450); Eosinophils Percent Auto 2.1 % (2-4); Hematocrit 41.5 % (41-53); Lymphocytes Absolute Auto 1500 /uL (1100-4500); Lymphocytes Percent Auto 25.4 % (25-40); Mean Corpuscular HGB Conc 33.6 % (30-36); Mean Corpuscular Hemoglobin 30.8 PG (26-34); Mean Corpuscular Volume 91.5 fL (80-100); Monocytes Absolute Auto 700 /uL (0-900); Neutrophils Absolute Auto 3500 /uL (1500-7000); Neutrophils Percent Auto 60.2 % (50-75); Platelet Count 140 X10^3/uL (150-400); Red Blood Cell Count 4.54 X10^6/uL (4.5-5.9); Red Cell Distribution Width 14.1 % (11.6-14.8); White Blood Cell Count 5.8 X10^3/uL (4.5-11.0)
== END ==
PROVIDERS: PCP Family Medicine; Visit Provider Family Medicine
DX: D64.9 Anemia, unspecified (principal)
CPT/HCPCS: 85025

== ENCOUNTER → 2024-03-02 11:53 | Outpatient (CLI) | payer MEDICARE, OTHER, SELFPAY ==
[2024-03-02 20:16] LABS: Add Manual Diff / Slide Review NO; Basophils Absolute Auto 0 /uL (0-100); Basophils Percent Auto 0.3 % (0-2); Eosinophils Absolute Auto 100 /uL (0-450); Eosinophils Percent Auto 1.4 % (2-4); Hematocrit 41.3 % (41-53); Hemoglobin 13.9 g/dL (13.5-17.5); Lymphocytes Absolute Auto 1300 /uL (1100-4500); Lymphocytes Percent Auto 17.2 % (25-40); Mean Corpuscular HGB Conc 33.7 % (30-36); Mean Corpuscular Hemoglobin 31.3 PG (26-34); Mean Corpuscular Volume 92.9 fL (80-100); Monocytes Absolute Auto 800 /uL (0-900); Neutrophils Absolute Auto 5100 /uL (1500-7000); Neutrophils Percent Auto 70.1 % (50-75); Platelet Count 117 X10^3/uL (150-400); Red Blood Cell Count 4.44 X10^6/uL (4.5-5.9); Red Cell Distribution Width 14.5 % (11.6-14.8); White Blood Cell Count 7.3 X10^3/uL (4.5-11.0)
== END ==
PROVIDERS: PCP Family Medicine; Visit Provider Family Medicine
DX: D64.9 Anemia, unspecified (principal)
CPT/HCPCS: 85025

== ENCOUNTER → 2024-04-29 09:42 | Outpatient (CLI) | payer MEDICARE, OTHER, SELFPAY ==
--- NOTE | 2024-04-29 09:43 | DI.RAD.S_ITS ---
PROCEDURE: FL BARIUM SWALLOW W SPEECH INDICATIONS: THROAT IRRITATION,DYSPAGIA COMPARISON: None. TECHNIQUE: Examination was conducted in conjunction with speech pathology per standard protocol. In the lateral projection, filming was performed of the patient swallowing. AP projection filming may also be performed with patient swallowing. COMPARISON: FINDINGS: Function: The oral preparatory phase appears normal, with proper containment. The subsequent oral propulsive phase, pharyngeal phase, and esophageal phase of swallowing also appear normal with all proffered substances. No laryngotracheal penetration or aspiration. There is vallecular pooling. Morphology: No cricopharyngeal bar is identified. No cervical esophageal webs. No Zenker's diverticulum. No strictures. IMPRESSION: No laryngotracheal aspiration. There is pooling within the vallecula. Dictated by: Tommy Gr M.D. on 04/29/2024 at 13:13 Approved by: Tommy Gr M.D. on 04/29/2024 at 13:15
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
== END ==
PROVIDERS: PCP Family Medicine; Referring Provider Physician Assistant; Visit Provider Physician Assistant
DX: K21.9 Gastro-esophageal reflux disease without esophagitis (principal); K44.9 Diaphragmatic hernia without obstruction or gangrene; R07.0 Pain in throat; R13.10 Dysphagia, unspecified
CPT/HCPCS: 74230; 92611

== ENCOUNTER → 2024-05-14 11:24 | Outpatient (CLI) | payer MEDICARE, OTHER, SELFPAY ==
[2024-05-14 20:21] LABS: Add Manual Diff / Slide Review NO; Basophils Absolute Auto 0 /uL (0-100); Basophils Percent Auto 0.4 % (0-2); Eosinophils Absolute Auto 200 /uL (0-450); Eosinophils Percent Auto 2.8 % (2-4); Hematocrit 40.1 % (41-53); Hemoglobin 13.6 g/dL (13.5-17.5); Lymphocytes Absolute Auto 1500 /uL (1100-4500); Lymphocytes Percent Auto 23.9 % (25-40); Mean Corpuscular HGB Conc 33.8 % (30-36); Mean Corpuscular Hemoglobin 31.7 PG (26-34); Mean Corpuscular Volume 93.7 fL (80-100); Monocytes Absolute Auto 700 /uL (0-900); Neutrophils Absolute Auto 4000 /uL (1500-7000); Neutrophils Percent Auto 61.9 % (50-75); Platelet Count 140 X10^3/uL (150-400); Red Blood Cell Count 4.28 X10^6/uL (4.5-5.9); Red Cell Distribution Width 14.4 % (11.6-14.8); White Blood Cell Count 6.4 X10^3/uL (4.5-11.0)
== END ==
PROVIDERS: PCP Family Medicine; Referring Provider Family Medicine; Visit Provider Family Medicine
DX: D64.9 Anemia, unspecified (principal)
CPT/HCPCS: 85025

== ENCOUNTER → 2024-06-30 13:02 | Outpatient (CLI) | payer MEDICARE, OTHER, SELFPAY ==
[2024-06-30 19:39] LABS: Add Manual Diff / Slide Review NO; Basophils Absolute Auto 0 /uL (0-100); Basophils Percent Auto 0.6 % (0-2); Eosinophils Absolute Auto 100 /uL (0-450); Eosinophils Percent Auto 1.6 % (2-4); Hemoglobin 14.3 g/dL (13.5-17.5); Lymphocytes Absolute Auto 1200 /uL (1100-4500); Lymphocytes Percent Auto 18.9 % (25-40); Mean Corpuscular HGB Conc 34.1 % (30-36); Mean Corpuscular Hemoglobin 31.7 PG (26-34); Monocytes Absolute Auto 600 /uL (0-900); Monocytes Percent Auto 9.1 % (3-14); Neutrophils Absolute Auto 4600 /uL (1500-7000); Neutrophils Percent Auto 69.8 % (50-75); Platelet Count 157 X10^3/uL (150-400); Red Blood Cell Count 4.52 X10^6/uL (4.5-5.9); Red Cell Distribution Width 14.1 % (11.6-14.8); White Blood Cell Count 6.6 X10^3/uL (4.5-11.0)
== END ==
PROVIDERS: PCP Family Medicine; Visit Provider Family Medicine
DX: D64.9 Anemia, unspecified (principal)
CPT/HCPCS: 85025

== ENCOUNTER → 2024-07-27 11:24 | Outpatient (CLI) | payer MEDICARE, OTHER, SELFPAY ==
[2024-07-27 19:22] LABS: Add Manual Diff / Slide Review NO; Basophils Absolute Auto 0 /uL (0-100); Basophils Percent Auto 0.6 % (0-2); Eosinophils Absolute Auto 100 /uL (0-450); Eosinophils Percent Auto 2.2 % (2-4); Hematocrit 39.2 % (41-53); Hemoglobin 13.6 g/dL (13.5-17.5); Lymphocytes Absolute Auto 1500 /uL (1100-4500); Lymphocytes Percent Auto 23.4 % (25-40); Mean Corpuscular HGB Conc 34.6 % (30-36); Mean Corpuscular Hemoglobin 32.3 PG (26-34); Mean Corpuscular Volume 93.4 fL (80-100); Monocytes Absolute Auto 800 /uL (0-900); Monocytes Percent Auto 11.7 % (3-14); Neutrophils Absolute Auto 4000 /uL (1500-7000); Neutrophils Percent Auto 62.1 % (50-75); Platelet Count 160 X10^3/uL (150-400); Red Cell Distribution Width 14.1 % (11.6-14.8); White Blood Cell Count 6.5 X10^3/uL (4.5-11.0)
== END ==
PROVIDERS: PCP Family Medicine; Visit Provider Family Medicine
DX: D64.9 Anemia, unspecified (principal)
CPT/HCPCS: 85025

== ENCOUNTER → 2024-08-26 13:22 | Outpatient (CLI) | payer MEDICARE, OTHER, SELFPAY ==
[2024-08-26 20:11] LABS: Add Manual Diff / Slide Review NO; Basophils Absolute Auto 0 /uL (0-100); Basophils Percent Auto 0.3 % (0-2); Eosinophils Absolute Auto 100 /uL (0-450); Eosinophils Percent Auto 0.9 % (2-4); Hematocrit 42.3 % (41-53); Hemoglobin 14.5 g/dL (13.5-17.5); Lymphocytes Absolute Auto 1300 /uL (1100-4500); Lymphocytes Percent Auto 15.3 % (25-40); Mean Corpuscular HGB Conc 34.3 % (30-36); Mean Corpuscular Hemoglobin 31.9 PG (26-34); Monocytes Absolute Auto 600 /uL (0-900); Neutrophils Absolute Auto 6300 /uL (1500-7000); Neutrophils Percent Auto 76.5 % (50-75); Platelet Count 158 X10^3/uL (150-400); Red Blood Cell Count 4.55 X10^6/uL (4.5-5.9); Red Cell Distribution Width 13.9 % (11.6-14.8); White Blood Cell Count 8.2 X10^3/uL (4.5-11.0)
== END ==
PROVIDERS: PCP Family Medicine; Visit Provider Family Medicine
DX: D64.9 Anemia, unspecified (principal)
CPT/HCPCS: 85025

== ENCOUNTER → 2024-10-29 12:56 | Outpatient (CLI) | payer MEDICARE, OTHER, SELFPAY ==
[2024-10-29 20:18] LABS: Add Manual Diff / Slide Review NO; Basophils Absolute Auto 0 /uL (0-100); Basophils Percent Auto 0.5 % (0-2); Eosinophils Absolute Auto 0 /uL (0-450); Eosinophils Percent Auto 0.6 % (2-4); Hematocrit 41.9 % (41-53); Hemoglobin 14.1 g/dL (13.5-17.5); Lymphocytes Absolute Auto 1100 /uL (1100-4500); Lymphocytes Percent Auto 14.7 % (25-40); Mean Corpuscular HGB Conc 33.5 % (30-36); Mean Corpuscular Hemoglobin 31.2 PG (26-34); Mean Corpuscular Volume 93.2 fL (80-100); Monocytes Absolute Auto 400 /uL (0-900); Monocytes Percent Auto 5.2 % (3-14); Neutrophils Absolute Auto 5800 /uL (1500-7000); Platelet Count 198 X10^3/uL (150-400); Red Cell Distribution Width 13.5 % (11.6-14.8); White Blood Cell Count 7.4 X10^3/uL (4.5-11.0)
[2024-10-29 20:28] LABS: Alanine Aminotransferase 31 IU/L (<50); Albumin 4.2 g/dL (3.5-5.0); Albumin Globulin Ratio 1.4 (1.0-2.8); Alkaline Phosphatase 67 U/L (38-126); Aspartate Aminotransferase 48 IU/L (17-59); BUN Creatinine Ratio 17.5 (6-22); Bilirubin Total 1.6 mg/dL (0.2-1.3); Blood Urea Nitrogen 20 mg/dL (9-20); Calcium 9.9 mg/dL (8.4-10.2); Carbon Dioxide 27 mmol/L (22-32); Chloride 104 mmol/L (98-107); Estimated Glomerular Filt Rate > 60 mL/min (>60); Globulin 3.1 g/dL (1.7-4.1); Glucose 128 mg/dL (80-110); HEMOLYSIS 20 (0-50); Potassium 4.3 mmol/L (3.4-5.1); Sodium 141 mmol/L (137-145); Total Protein 7.3 g/dL (6.3-8.2)
== END ==
PROVIDERS: Physician Assistant; PCP Family Medicine; Visit Provider Family Medicine
DX: D64.9 Anemia, unspecified (principal); R21 Rash and other nonspecific skin eruption
CPT/HCPCS: 80053; 85025

== ENCOUNTER → 2024-11-26 10:58 | Outpatient (CLI) | payer MEDICARE, OTHER, SELFPAY ==
[2024-11-26 20:49] LABS: Add Manual Diff / Slide Review NO; Basophils Absolute Auto 0 /uL (0-100); Basophils Percent Auto 0.4 % (0-2); Eosinophils Absolute Auto 100 /uL (0-450); Eosinophils Percent Auto 2.5 % (2-4); Hematocrit 40.9 % (41-53); Hemoglobin 13.8 g/dL (13.5-17.5); Lymphocytes Absolute Auto 1500 /uL (1100-4500); Mean Corpuscular HGB Conc 33.8 % (30-36); Mean Corpuscular Hemoglobin 31.4 PG (26-34); Mean Corpuscular Volume 92.9 fL (80-100); Monocytes Absolute Auto 700 /uL (0-900); Monocytes Percent Auto 12.8 % (3-14); Neutrophils Absolute Auto 3100 /uL (1500-7000); Neutrophils Percent Auto 56.3 % (50-75); Platelet Count 171 X10^3/uL (150-400); Red Cell Distribution Width 14.2 % (11.6-14.8); White Blood Cell Count 5.5 X10^3/uL (4.5-11.0)
[2024-11-26 21:10] LABS: Hemoglobin A1C% w Est Avg Glu 5.7 % (4.0-6.0)
[2024-11-26 21:12] LABS: Alanine Aminotransferase 24 IU/L (<50); Albumin 4.1 g/dL (3.5-5.0); Albumin Globulin Ratio 1.5 (1.0-2.8); Alkaline Phosphatase 67 U/L (38-126); Aspartate Aminotransferase 31 IU/L (17-59); BUN Creatinine Ratio 21.3 (6-22); Bilirubin Total 2.1 mg/dL (0.2-1.3); Blood Urea Nitrogen 23 mg/dL (9-20); Calcium 9.4 mg/dL (8.4-10.2); Carbon Dioxide 26 mmol/L (22-32); Chloride 104 mmol/L (98-107); Estimated Glomerular Filt Rate > 60 mL/min (>60); Globulin 2.7 g/dL (1.7-4.1); Glucose 85 mg/dL (80-110); HEMOLYSIS 21 (0-50); Potassium 4.2 mmol/L (3.4-5.1); Sodium 138 mmol/L (137-145); Total Protein 6.8 g/dL (6.3-8.2)
== END ==
PROVIDERS: PCP Family Medicine; Visit Provider Physician Assistant
DX: R73.9 Hyperglycemia, unspecified (principal); D64.9 Anemia, unspecified; E80.6 Other disorders of bilirubin metabolism
CPT/HCPCS: 80053; 82248; 83036; 85025

== ENCOUNTER → 2024-12-24 11:55 | Outpatient (CLI) | payer MEDICARE, OTHER, SELFPAY ==
[2024-12-24 19:19] LABS: Add Manual Diff / Slide Review NO; Basophils Absolute Auto 0 /uL (0-100); Basophils Percent Auto 0.5 % (0-2); Eosinophils Absolute Auto 100 /uL (0-450); Hematocrit 41.5 % (41-53); Hemoglobin 13.9 g/dL (13.5-17.5); Lymphocytes Absolute Auto 1000 /uL (1100-4500); Mean Corpuscular HGB Conc 33.4 % (30-36); Mean Corpuscular Volume 92.8 fL (80-100); Monocytes Absolute Auto 500 /uL (0-900); Monocytes Percent Auto 7.4 % (3-14); Neutrophils Absolute Auto 5700 /uL (1500-7000); Neutrophils Percent Auto 78.1 % (50-75); Platelet Count 185 X10^3/uL (150-400); Red Blood Cell Count 4.48 X10^6/uL (4.5-5.9); Red Cell Distribution Width 14.3 % (11.6-14.8); White Blood Cell Count 7.3 X10^3/uL (4.5-11.0)
== END ==
PROVIDERS: PCP Family Medicine; Visit Provider Physician Assistant
DX: D64.9 Anemia, unspecified (principal); E80.6 Other disorders of bilirubin metabolism
CPT/HCPCS: 82248; 85025

== ENCOUNTER → 2025-03-03 13:19 | Outpatient (CLI) | payer MEDICARE, OTHER, SELFPAY ==
[2025-03-03 19:42] LABS: BUN Creatinine Ratio 18.2 (6-22); Blood Urea Nitrogen 18 mg/dL (9-20); Calcium 9.2 mg/dL (8.4-10.2); Carbon Dioxide 25 mmol/L (22-32); Chloride 104 mmol/L (98-107); Estimated Glomerular Filt Rate > 60 mL/min (>60); Glucose 109 mg/dL (70-99); HEMOLYSIS < 15 (0-50); Potassium 4.3 mmol/L (3.4-5.1); Sodium 137 mmol/L (137-145)
[2025-03-03 20:01] LABS: Creatinine Urine Random 56.99 mg/dL
[2025-03-03 20:10] LABS: Microalbumin Urine Random < 0.6 mg/dL (0-1.6)
== END ==
PROVIDERS: PCP Family Medicine; Visit Provider Family Medicine
DX: R79.89 Other specified abnormal findings of blood chemistry (principal)
CPT/HCPCS: 80048; 82043; 82570

== ENCOUNTER → 2025-04-07 12:57 | Outpatient (CLI) | payer MEDICARE, OTHER, SELFPAY ==
[2025-04-07 21:01] LABS: Add Manual Diff / Slide Review NO; Hematocrit 41.4 % (41-53); Hemoglobin 14.0 g/dL (13.5-17.5); Lymphocytes Absolute Auto 1100 /uL (1100-4500); Mean Corpuscular HGB Conc 33.9 % (30-36); Mean Corpuscular Hemoglobin 31.4 PG (26-34); Mean Corpuscular Volume 92.8 fL (80-100); Platelet Count 175 X10^3/uL (150-400)
== END ==
PROVIDERS: PCP Family Medicine; Visit Provider Family Medicine
DX: D64.9 Anemia, unspecified (principal); D69.6 Thrombocytopenia, unspecified
CPT/HCPCS: 85025

== ENCOUNTER → 2025-07-22 12:19 | Outpatient (CLI) | payer MEDICARE, OTHER, SELFPAY ==
[2025-07-22 19:03] LABS: Add Manual Diff / Slide Review NO; Hematocrit 41.0 % (41-53); Hemoglobin 14.0 g/dL (13.5-17.5); Lymphocytes Absolute Auto 1300 /uL (1100-4500); Mean Corpuscular HGB Conc 34.1 % (30-36); Mean Corpuscular Hemoglobin 31.6 PG (26-34); Mean Corpuscular Volume 92.7 fL (80-100); Platelet Count 194 X10^3/uL (150-400)
== END ==
PROVIDERS: PCP Family Medicine; Visit Provider Family Medicine
DX: D69.6 Thrombocytopenia, unspecified (principal); C94.6 Myelodysplastic disease, not elsewhere classified
CPT/HCPCS: 85025